=== PATIENT | female | born 1955 | race Caucasian/White ===

== ENCOUNTER 2020-10-30 19:37 | Inpatient (IN) | payer OTHER ==
[~2020-10-30] VITALS: Ht 167.6 cm; Wt 64.0 kg
--- NOTE | 2020-10-30 20:17 | PHYS DOC ---
Past Medical History Past Surgical History: No Surgical History Smoking Status: Never Smoker Alcohol Use: Heavy General Adult EDM: Chief Complaint: OTHER COMPLAINTS HPI: HPI: Patient is a 64 year old female presents with a chief complaint of weakness. Patient states she has been weak for 1 month progressively becoming worse. She states she has had decreased appetite. States she she has not been interested in eating or drinking. Patient states that she has had difficulty walking due to generalized weakness. States her has to help ambulate her and clean her up. Patient denies any associated headache chest pain shortness of breath fever chills nausea or vomiting. Review of Systems: Review of Systems: Review of systems: Constitutional symptoms- No fever, no chills. Eyes- No Discharge, No Visual Loss Respiratory symptoms- No shortness of breath, No wheezing, No Dyspnea on Exertion Cardiovascular Systems; No chest pain, No Palpitations, No syncope Gastrointestinal symptoms: NO abdominal pain, no nausea, no vomiting or diarrhea. Genitourinary symptoms: No dysuria. Musculoskeletal symptoms: No back pain No extremity pain. NEUROLOGICAL Symptoms: No headache, Positive generalized weakness; No focal Weakness Skin: No rash. Heart Score: C/O Chest Pain: N/A Risk Factors: Risk Factors: DM, Current or recent (<one month) smoker, HTN, HLP, family history of CAD, obesity. Risk Scores: Score 0 - 3: 2.5% MACE over next 6 weeks - Discharge Home Score 4 - 6: 20.3% MACE over next 6 weeks - Admit for Clinical Observation Score 7 - 10: 72.7% MACE over next 6 weeks - Early Invasive Strategies Allergies: Allergies: Allergies Coded Allergies Type Severity Reaction Last Updated Verified No Known Drug Allergies 10/30/20 No Physical Exam: PE: General: alert, no acute distress. Skin: warm, dry and intact. HENT: bilateral external ears normal, oropharynx moist, nose normal. Head:: Normocephalic, atraumatic. Neck: Trachea midline. Eyes: EOMI, Normal conjunctiva, No drainage CARDIOVASCULAR: Regular rate and rhythm RESPIRATORY: No respiratory distress Back: Full range of motion. Skin: Warm, dry, no erythema, no rash. MUSCULOSKELETAL: Full range of motion of bilateral upper and lower extremities. GASTROINTESTINAL: Abdomen soft without rebound or guarding. NEUROLOGICAL: Alert and noted to person, place and time. No neurological deficits observed Psychiatric: Cooperative. Normal judgment Current Patient Data: Vital Signs: Vital Signs Date Time Temp Pulse Resp B/P (MAP) Pulse Ox O2 Delivery O2 Flow Rate FiO2 10/30/20 19:40 99.1 104 16 133/72 99 Room Air 99.1 EKG: EKG: Performed at 1947 Rate [address] elevation No ST depression No acute NV [] Radiology/Procedures: Radiology/Procedures: [] Impression: FINDINGS: Pancreas: Not well seen Liver: Echogenic Gallbladder: Distended measuring up to about 94 mm. Definite adjacent fluid is not seen. Small amount of internal echoes which could be from sludge. Wall near the upper limits of normal at 3 mm. IVC: Partially distended at level of liver. Common Bile Duct: 5 mm Right Kidney: 19 mm cyst is suspected IMPRESSION: * Liver is echogenic which can be seen with fatty infiltration. * Gallbladder is distended with small amount of internal echoes which could be from sludge. Wall is near the upper limits of normal in size without definite adjacent fluid Electronically signed by: Dwayne Garza MD (10/31/2020 12:48 AM) [id number] Course & Med Decision Making: Course & Med Decision Making Pertinent Labs and Imaging studies reviewed. (See chart for details) [] Patient was evaluated for chief complaint. Work-up consisted of laboratory analysis and radiologic imaging. Results reviewed discussed with patient. Patient noted to have elevated T bili mild elevated AST and elevated alk phos. Sound was performed and shows gallbladder wall upper limits of normal and sludge. Patient was admitted to hospital for further evaluation and treatment. Shine Disclaimer: Shine Disclaimer: This electronic medical record was generated, in whole or in part, using a voice recognition dictation system. Departure Departure Impression: Primary Impression: Generalized weakness Additional Impression: Total bilirubin, elevated Disposition: ADMITTED INPATIENT Condition: STABLE PRERNA FRANCE I DO Oct 30, 2020 20:17
[2020-10-30] MEDS ORDERED: IV NORMAL SALINE 1000ML BAG 1,000 ML IV ONE ×2 (21:00→23:00)
[2020-10-30 21:39] LABS: BASO % 0 % (0-3); EOS % 0 % (0-3); HEMATOCRIT 25.8 % (36.0-47.0); HEMOGLOBIN 8.9 g/dL (12.0-15.5); LYMPH # 0.6 x10^3/uL (1.0-4.8); LYMPH % 5 % (24-48); MEAN CORPUSCULAR HEMOGLOBIN 43 pg (25-35); MEAN CORPUSCULAR HGB CONC 35 g/dL (31-37); MEAN CORPUSCULAR VOLUME 124 fL (79-100); MONO # 0.7 x10^3/uL (0.0-1.1); MONO % 7 % (0-9); NEUT # 9.8 x10^3/uL (1.8-7.7); NEUT % 88 % (31-73); PLATELET COUNT 107 x10^3/uL (140-400); RED BLOOD COUNT 2.08 x10^6/uL (3.50-5.40); RED CELL DISTRIBUTION WIDTH 15.5 % (11.5-14.5); WHITE BLOOD COUNT 11.2 x10^3/uL (4.0-11.0)
[2020-10-30 21:47] LABS: CALCIUM 7.6 mg/dL (8.5-10.1); CREATININE 0.5 mg/dL (0.6-1.0); GFR 124.2; POTASSIUM 3.6 mmol/L (3.5-5.1)
[2020-10-30 21:54] LABS: ALBUMIN 1.6 g/dL (3.4-5.0); ALBUMIN/GLOBULIN RATIO 0.3 (1.0-1.7); TOTAL BILIRUBIN 3.9 mg/dL (0.2-1.0); TOTAL PROTEIN 6.5 g/dL (6.4-8.2)
[2020-10-30 22:07] LABS: % BANDS 33 % (0-9); % LYMPHS 5 % (24-48); % MONOS 4 % (0-10); % SEGS 58 % (35-66)
[2020-10-30 22:10] LABS: PLT ESTIMATE DECREASED (ADEQUATE)
[2020-10-30] MEDS ORDERED: IOHEXOL 300 MG/ML 100ML VIAL. IV ONE (23:00)
[2020-10-30] MEDS ORDERED: CONTRAST GIVEN. MC PRN (23:00)
[2020-10-30 23:05] LABS: CLARITY,URINE CLOUDY
[2020-10-30 23:11] LABS: COLOR,URINE BROWN
[2020-10-30 23:14] LABS: BACTERIA,URINE FEW /HPF (0-FEW); RBC,URINE 0 /HPF (0-2)
--- NOTE | 2020-10-30 23:34 | RAD ---
INDICATION: Reason: abnormal labs elevated tbil ast alk phose / Spl. Instructions: [id number] / History: . COMPARISON: None. TECHNIQUE: Axial CT images obtained through the abdomen and pelvis with contrast. One or more of the following individualized dose reduction techniques were utilized for this examinat ion: 1. Automated exposure control; 2. Adjustment of the mA and/or kV according to patient size; 3 . Use of iterative reconstruction technique. FINDINGS: Small right-sided pleural effusion. Moderate hiatal hernia. Scattered calcific atherosclerosis. Liver is low density which can be seen with fatty infiltration. There is some heterogeneity. Gallbladder is somewhat distended with indistinctness of adjacent fat. No peripancreatic fluid collection. Spleen unremarkable. No hydronephrosis. Urinary bladder is partially distended. Free fluid in the pelvis. Uterus is visualized. Colonic diverticulosis. No periappendiceal inflammatory changes. Scoliotic curvature the spine with degenerative changes with multilevel central canal and neural fora julio cesar stenosis. Osseous demineralization. T12 mild compression deformity and Schmorl's node. Mild T11 compression deformity and T9 IMPRESSION: * Small right-sided pleural effusion. * Mild indistinctness of fat adjacent to the gallbladder. Nonspecific in nature but mild pericholecy stic edema is possible given this finding. Would correlate with symptoms and lab markers to ensure th ere is no gallbladder inflammation. This is a mild finding and could also be artifactual in nature fr om motion. * Liver is low density which can be seen with fatty infiltration. * Lower thoracic vertebral body mild compression deformities Electronically signed by: Dwayne Garza MD (10/30/2020 11:32 PM) [id number]
[2020-10-31] MEDS ORDERED: ONDANSETRON PF 4 MG/2 ML VIAL. IV PRN
--- NOTE | 2020-10-31 00:50 | RAD ---
INDICATION : Reason: ABD NORM LABS LFT TBIL ABNORMAL CT / Spl. Instructions: / History: COMPARISON: CT from earlier same day TECHNIQUE: Multiple ultrasound images obtained through the abdomen in grayscale and color. FINDINGS: Pancreas: Not well seen Liver: Echogenic Gallbladder: Distended measuring up to about 94 mm. Definite adjacent fluid is not seen. Small amount of internal echoes which could be from sludge. Wall near the upper limits of normal at 3 mm. IVC: Partially distended at level of liver. Common Bile Duct: 5 mm Right Kidney: 19 mm cyst is suspected IMPRESSION: * Liver is echogenic which can be seen with fatty infiltration. * Gallbladder is distended with small amount of internal echoes which could be from sludge. Wall is near the upper limits of normal in size without definite adjacent fluid Electronically signed by: Dwayne Garza MD (10/31/2020 12:48 AM) [id number]
[2020-10-31 02:30] VITALS: BP 123/63
[2020-10-31] MEDS ORDERED: ESCITALOPRAM OX20 MG PO (02:56)
[2020-10-31 07:30] VITALS: BP 113/60
[2020-10-31] MEDS ORDERED: ONDANSETRON PF 4 MG/2 ML VIAL. IVP PRN (08:15)
[2020-10-31] MEDS ORDERED: DOCUSATE SODIUM 100 MG CAPSULE. PO PRN (08:15)
[2020-10-31] MEDS ORDERED: SENNOSIDES 8.6 MG TABLET PO PRN (08:15)
[2020-10-31] MEDS ORDERED: DEXTROSE 50% 25 GM / 50ML DISP.SYRIN. IV PRN (08:15)
--- NOTE | 2020-10-31 08:19 | PDOC1 ---
History and Physical Date of Service: DOS: DATE: 10/31/20 TIME: 08:11 Chief Complaint: Chief Complain: Generalized weakness History of Present Illness: HPI: 64 year old female presents with a chief complaint of weakness. Patient states she has been weak for 1 month progressively becoming worse. She states she has had decreased appetite. States she she has not been interested in eating or drinking. Patient states that she has had difficulty walking due to generalized weakness. States her has to help ambulate her and clean her up. Patient denies any associated headache chest pain shortness of breath fever chills nausea or vomiting. Past Medical/Surgical History: PMH/PSH: Past Surgical History: No Surgical History Allergies: Allergies: Coded Allergies: No Known Drug Allergies (Unverified , 10/30/20) Family History: Family History: Reviewed with no relevant findings Social History: Social History: Smoking Status: Never Smoker Alcohol Use: Heavy Current Medications: Current Medications Current Medications Sodium Chloride 1,000 ml @ 1,000 mls/hr 1X ONCE IV Last administered on 10/30/20at 22:00; Start 10/30/20 at 21:00; Stop 10/30/20 at 21:59; Status DC Sodium Chloride 1,000 ml @ 1,000 mls/hr 1X ONCE IV Last administered on 10/31/20at 01:50; Start 10/30/20 at 23:00; Stop 10/30/20 at 23:59; Status DC Iohexol (Omnipaque 300 Mg/ml) 75 ml 1X ONCE IV Last administered on 10/30/20at 23:14; Start 10/30/20 at 23:00; Stop 10/30/20 at 23:01; Status DC Info (CONTRAST GIVEN -- Rx MONITORING) 1 each PRN DAILY PRN MC SEE COMMENTS; Start 10/30/20 at 23:00; Stop 11/01/20 at 22:59 Ondansetron HCl (Zofran) 4 mg PRN Q8HRS PRN IV NAUSEA/VOMITING; Start 10/31/20 at 00:00; Stop 10/31/20 at 23:59 Active Scripts Active Reported Escitalopram Oxalate 20 Mg Tablet 1 Tab PO DAILY ROS: Review of Systems Review of System REVIEW OF SYSTEMS: GENERAL: Denies weakness SKIN: No bruising, hair changes or rashes. EYES: No blurred, double or loss of vision. NOSE AND THROAT: No history of nosebleeds, hoarseness or sore throat. HEART: No history of palpitations, chest pain or shortness of breath on exertion. LUNGS: Denies cough, hemoptysis, wheezing or shortness of breath. GASTROINTESTINAL: Denies changes in appetite, nausea, vomiting, diarrhea or constipation. GENITOURINARY: No history of frequency, urgency, hesitancy or nocturia. NEUROLOGIC: Denies history of numbness, tingling, or tremor. PSYCHIATRIC: No history of panic, anxiety or depression. ENDOCRINE: No history of heat or cold intolerance, polyuria or polydipsia. EXTREMITIES: Denies joint pain, pain on walking or stiffness. Physical Exam: Vital Signs: Vital Signs Date Time Temp Pulse Resp B/P (MAP) Pulse Ox O2 Delivery O2 Flow Rate FiO2 10/31/20 02:59 Room Air 10/31/20 02:30 98.5 101 18 123/63 (83) 97 98.5 Physcial Exam: GEN: No apparent distress. Alert and oriented HEENT: Normal cephalic, atraumatic, external auditory canals are patent EYES: Extraocular muscles are intact, pupil are equally round and reactive to light and accommodation MUSCULOSKELETAL: Well developed , well nourished, good range of motion ENDOCRINE: No thyromegaly was palpated LYMPHATICS: No cervical chain or axillary nodes were noted HEMATOPOIETIC: No bruising NECK: Supple, no JVD, no thyromegaly was noted LUNGS: Clear to auscultation in all lung gu without rhonchi or wheezing HEART: RRR, S!, S2 present. Peripheral pulses intact, no obvious murmurs noted ABDOMEN: Soft, nontender. Positive bowel sounds, no organomegaly, normal bowel sounds EXTREMITIES: Without clubbing, cyanosis, or edema. Pedal pulses intact. Negative Homans sign NEUROLOGIC: Normal speech and tone. A&O x 3, moves all extremities, no obvious focal deficits PSYCHIATRIC: Normal affect, normal mood. Stable SKIN: No ulcerations or rashes, good skin turgor, no jaundice VASCULAR: Good capillary refill, neurovascular bundle appears to be intact Labs: Labs: Laboratory Tests Test 10/30/20 21:30 10/30/20 22:55 White Blood Count 11.2 x10^3/uL (4.0-11.0) Red Blood Count 2.08 x10^6/uL (3.50-5.40) Hemoglobin 8.9 g/dL (12.0-15.5) Hematocrit 25.8 % (36.0-47.0) Mean Corpuscular Volume 124 fL (79-100) Mean Corpuscular Hemoglobin 43 pg (25-35) Mean Corpuscular Hemoglobin Concent 35 g/dL (31-37) Red Cell Distribution Width 15.5 % (11.5-14.5) Platelet Count 107 x10^3/uL (140-400) Neutrophils (%) (Auto) 88 % (31-73) Lymphocytes (%) (Auto) 5 % (24-48) Monocytes (%) (Auto) 7 % (0-9) Eosinophils (%) (Auto) 0 % (0-3) Basophils (%) (Auto) 0 % (0-3) Neutrophils # (Auto) 9.8 x10^3/uL (1.8-7.7) Lymphocytes # (Auto) 0.6 x10^3/uL (1.0-4.8) Monocytes # (Auto) 0.7 x10^3/uL (0.0-1.1) Eosinophils # (Auto) 0.0 x10^3/uL (0.0-0.7) Basophils # (Auto) 0.0 x10^3/uL (0.0-0.2) Segmented Neutrophils % 58 % (35-66) Band Neutrophils % 33 % (0-9) Lymphocytes % 5 % (24-48) Monocytes % 4 % (0-10) Platelet Estimate Decreased (ADEQUATE) Macrocytosis Marked Sodium Level 132 mmol/L (136-145) Potassium Level 3.6 mmol/L (3.5-5.1) Chloride Level 96 mmol/L (98-107) Carbon Dioxide Level 25 mmol/L (21-32) Anion Gap 11 (6-14) Blood Urea Nitrogen 10 mg/dL (7-20) Creatinine 0.5 mg/dL (0.6-1.0) Estimated GFR (Cockcroft-Gault) 124.2 BUN/Creatinine Ratio 20 (6-20) Glucose Level 86 mg/dL (70-99) Calcium Level 7.6 mg/dL (8.5-10.1) Total Bilirubin 3.9 mg/dL (0.2-1.0) Aspartate Amino Transf (AST/SGOT) 99 U/L (15-37) Alanine Aminotransferase (ALT/SGPT) 51 U/L (14-59) Alkaline Phosphatase 289 U/L (46-116) Troponin I Quantitative < 0.017 ng/mL (0.000-0.055) Total Protein 6.5 g/dL (6.4-8.2) Albumin 1.6 g/dL (3.4-5.0) Albumin/Globulin Ratio 0.3 (1.0-1.7) Urine Collection Type Unknown Urine Color Brown Urine Clarity Cloudy Urine pH (<5.0-8.0) Urine Specific [place] 1.025 (1.000-1.030) Urine Protein mg/dL (NEG-TRACE) Urine Glucose (UA) mg/dL (NEG) Urine Ketones (Stick) mg/dL (NEG) Urine Blood (NEG) Urine Nitrite (NEG) Urine Bilirubin (NEG) Urine Urobilinogen Dipstick mg/dL (0.2 mg/dL) Urine Leukocyte Esterase (NEG) Urine RBC 0 /HPF (0-2) Urine WBC 5-10 /HPF (0-4) Urine Squamous Epithelial Cells Many /LPF Urine Bacteria Few /HPF (0-FEW) Urine Mucus Slight /LPF Laboratory Tests Test 10/30/20 21:30 10/30/20 22:55 White Blood Count 11.2 x10^3/uL (4.0-11.0) Red Blood Count 2.08 x10^6/uL (3.50-5.40) Hemoglobin 8.9 g/dL (12.0-15.5) Hematocrit 25.8 % (36.0-47.0) Mean Corpuscular Volume 124 fL (79-100) Mean Corpuscular Hemoglobin 43 pg (25-35) Mean Corpuscular Hemoglobin Concent 35 g/dL (31-37) Red Cell Distribution Width 15.5 % (11.5-14.5) Platelet Count 107 x10^3/uL (140-400) Neutrophils (%) (Auto) 88 % (31-73) Lymphocytes (%) (Auto) 5 % (24-48) Monocytes (%) (Auto) 7 % (0-9) Eosinophils (%) (Auto) 0 % (0-3) Basophils (%) (Auto) 0 % (0-3) Neutrophils # (Auto) 9.8 x10^3/uL (1.8-7.7) Lymphocytes # (Auto) 0.6 x10^3/uL (1.0-4.8) Monocytes # (Auto) 0.7 x10^3/uL (0.0-1.1) Eosinophils # (Auto) 0.0 x10^3/uL (0.0-0.7) Basophils # (Auto) 0.0 x10^3/uL (0.0-0.2) Segmented Neutrophils % 58 % (35-66) Band Neutrophils % 33 % (0-9) Lymphocytes % 5 % (24-48) Monocytes % 4 % (0-10) Platelet Estimate Decreased (ADEQUATE) Macrocytosis Marked Sodium Level 132 mmol/L (136-145) Potassium Level 3.6 mmol/L (3.5-5.1) Chloride Level 96 mmol/L (98-107) Carbon Dioxide Level 25 mmol/L (21-32) Anion Gap 11 (6-14) Blood Urea Nitrogen 10 mg/dL (7-20) Creatinine 0.5 mg/dL (0.6-1.0) Estimated GFR (Cockcroft-Gault) 124.2 BUN/Creatinine Ratio 20 (6-20) Glucose Level 86 mg/dL (70-99) Calcium Level 7.6 mg/dL (8.5-10.1) Total Bilirubin 3.9 mg/dL (0.2-1.0) Aspartate Amino Transf (AST/SGOT) 99 U/L (15-37) Alanine Aminotransferase (ALT/SGPT) 51 U/L (14-59) Alkaline Phosphatase 289 U/L (46-116) Troponin I Quantitative < 0.017 ng/mL (0.000-0.055) Total Protein 6.5 g/dL (6.4-8.2) Albumin 1.6 g/dL (3.4-5.0) Albumin/Globulin Ratio 0.3 (1.0-1.7) Urine Collection Type Unknown Urine Color Brown Urine Clarity Cloudy Urine pH (<5.0-8.0) Urine Specific [place] 1.025 (1.000-1.030) Urine Protein mg/dL (NEG-TRACE) Urine Glucose (UA) mg/dL (NEG) Urine Ketones (Stick) mg/dL (NEG) Urine Blood (NEG) Urine Nitrite (NEG) Urine Bilirubin (NEG) Urine Urobilinogen Dipstick mg/dL (0.2 mg/dL) Urine Leukocyte Esterase (NEG) Urine RBC 0 /HPF (0-2) Urine WBC 5-10 /HPF (0-4) Urine Squamous Epithelial Cells Many /LPF Urine Bacteria Few /HPF (0-FEW) Urine Mucus Slight /LPF Images: Images PROCEDURE: ABDOMEN LTD INDICATION : Reason: ABD NORM LABS LFT TBIL ABNORMAL CT / Spl. Instructions: / History: IMPRESSION: * Liver is echogenic which can be seen with fatty infiltration. * Gallbladder is distended with small amount of internal echoes which could be from sludge. Wall is near the upper limits of normal in size without definite adjacent fluid PROCEDURE: CT ABD PELV W/ IV CONTRST ONLY IMPRESSION: * Small right-sided pleural effusion. * Mild indistinctness of fat adjacent to the gallbladder. Nonspecific in nature but mild pericholecystic edema is possible given this finding. Would correlate with symptoms and lab markers to ensure there is no gallbladder inflammation. This is a mild finding and could also be artifactual in nature from motion. * Liver is low density which can be seen with fatty infiltration. * Lower thoracic vertebral body mild compression deformities Assessment/Plan Assessment/Plan Generalized weakness Macrocytic anemia Thrombocytopenia Acute electrolyte derangementhyponatremia, hypochloremia suggestive of volume depletion Hyperbilirubinemia Elevated liver enzymes - increased AST/ALT ratio suggestive of chronic EtOH abuse Severe protein malnutrition Acute cholecystitis Admit to medicine for further management GI consult Surgery consult pending iron panel ,B12 levels, ferritin and direct biliruin SCD only for DVT prophylaxis Protonix for GI prophylaxis DPOA: FULL code dispo: surgery and GI to evaluate Justifications for Admission Other Justification SAL HERNANDEZ MD Oct 31, 2020 08:19
[2020-10-31] MEDS: IV NORMAL SALINE 1000ML BAG 1,000 ML IV SCH ×2 (08:38→21:04)
[2020-10-31] MEDS: ENOXAPARIN 40 MG/0.4 ML SYRINGE. SQ SCH ×2 (08:38→09:00)
[2020-10-31 09:45] LABS: PROTHROMBIN TIME PATIENT 14.6 SEC (11.7-14.0)
--- NOTE | 2020-10-31 11:26 | PDOC2 ---
GI CONSULT Date of Service: DATE: 10/31/20 TIME: 11:20 Reason For Consult: elevated total bili HPI: HPI: 64 y/o female admitted through ER. Ill for weeks - months. present for first part of interview because pt asked him to leave. Before he stepped out, he said pt's siblings came to the house "for an intervention" and said it was time to get some help. I asked what the intervention was for - they said becau se she hasn't eaten anything except Ensure in weeks and is very weak. "I just don't feel like it." Additionally, before he left, he said "I just thought I could help you tell her the truth." H/o reflux - takes Maalox PRN. No dysphagia. No n/v. No abd pain. No early satiety. No diarrhea, constipation, hematochezia, or melena. Estimates 50 pound weight loss. Reports blood in urine. No previous EGD. Reports normal colonoscopy (says done here) ~10 years ago. Denies GB, pancreas, or PUD history. Says she was told to stop drinking alcohol by her PCP (?because of abnormal liver labs?) about a year ago and she didn't. Says she drinks "too much." Has never tried AA, etc. Indicates she is not interested in quitting drinking altogether. Says she has been drinking less over the past year ("half a glass of wine at night.. I'm not rip-roarin' drunk or anything"). Started taking anti-depressant ~6 months ago. Takes no other medications. Labs note Hgb 8.9, MCV 124, plt 101, INR 1.1, bili 3.9, AST 99, ALT 51, Alk Phos 289. CT notes fatty liver, mild mild indistinctness of fat adjacent to GB, and moderate hiatal hernia. US notes distended GB w/ possible sludge, CBD 5mm (normal), and fatty liver. PMH: PMH: depression FH: Family History: No pertinent hx (denies liver disease) Social History: Smoke: Quit ALCOHOL: heavy Drugs: None ROS: GEN: +depressed HEENT: Denies blurred vision, sore throat CV: Denies chest pain RESP: Denies shortness of air, cough GI: Per HPI : +hematuria ENDO: +weight loss NEURO: Denies confusion, dizziness MSK: +weakness SKIN: Denies jaundice, pruritus Vitals: Vitals: Vital Signs Date Time Temp Pulse Resp B/P (MAP) Pulse Ox O2 Delivery O2 Flow Rate FiO2 10/31/20 08:00 Room Air 10/31/20 07:30 98.4 107 16 113/60 (77) 95 98.4 Labs: Labs: Laboratory Tests Test 10/30/20 21:30 10/30/20 22:55 10/31/20 08:30 White Blood Count 11.2 x10^3/uL (4.0-11.0) Red Blood Count 2.08 x10^6/uL (3.50-5.40) Hemoglobin 8.9 g/dL (12.0-15.5) Hematocrit 25.8 % (36.0-47.0) Mean Corpuscular Volume 124 fL (79-100) Mean Corpuscular Hemoglobin 43 pg (25-35) Mean Corpuscular Hemoglobin Concent 35 g/dL (31-37) Red Cell Distribution Width 15.5 % (11.5-14.5) Platelet Count 107 x10^3/uL (140-400) Neutrophils (%) (Auto) 88 % (31-73) Lymphocytes (%) (Auto) 5 % (24-48) Monocytes (%) (Auto) 7 % (0-9) Eosinophils (%) (Auto) 0 % (0-3) Basophils (%) (Auto) 0 % (0-3) Neutrophils # (Auto) 9.8 x10^3/uL (1.8-7.7) Lymphocytes # (Auto) 0.6 x10^3/uL (1.0-4.8) Monocytes # (Auto) 0.7 x10^3/uL (0.0-1.1) Eosinophils # (Auto) 0.0 x10^3/uL (0.0-0.7) Basophils # (Auto) 0.0 x10^3/uL (0.0-0.2) Segmented Neutrophils % 58 % (35-66) Band Neutrophils % 33 % (0-9) Lymphocytes % 5 % (24-48) Monocytes % 4 % (0-10) Platelet Estimate Decreased (ADEQUATE) Macrocytosis Marked Sodium Level 132 mmol/L (136-145) Potassium Level 3.6 mmol/L (3.5-5.1) Chloride Level 96 mmol/L (98-107) Carbon Dioxide Level 25 mmol/L (21-32) Anion Gap 11 (6-14) Blood Urea Nitrogen 10 mg/dL (7-20) Creatinine 0.5 mg/dL (0.6-1.0) Estimated GFR (Cockcroft-Gault) 124.2 BUN/Creatinine Ratio 20 (6-20) Glucose Level 86 mg/dL (70-99) Calcium Level 7.6 mg/dL (8.5-10.1) Total Bilirubin 3.9 mg/dL (0.2-1.0) Aspartate Amino Transf (AST/SGOT) 99 U/L (15-37) Alanine Aminotransferase (ALT/SGPT) 51 U/L (14-59) Alkaline Phosphatase 289 U/L (46-116) Troponin I Quantitative < 0.017 ng/mL (0.000-0.055) Total Protein 6.5 g/dL (6.4-8.2) Albumin 1.6 g/dL (3.4-5.0) Albumin/Globulin Ratio 0.3 (1.0-1.7) Urine Collection Type Unknown Urine Color Brown Urine Clarity Cloudy Urine pH (<5.0-8.0) Urine Specific [place] 1.025 (1.000-1.030) Urine Protein mg/dL (NEG-TRACE) Urine Glucose (UA) mg/dL (NEG) Urine Ketones (Stick) mg/dL (NEG) Urine Blood (NEG) Urine Nitrite (NEG) Urine Bilirubin (NEG) Urine Urobilinogen Dipstick mg/dL (0.2 mg/dL) Urine Leukocyte Esterase (NEG) Urine RBC 0 /HPF (0-2) Urine WBC 5-10 /HPF (0-4) Urine Squamous Epithelial Cells Many /LPF Urine Bacteria Few /HPF (0-FEW) Urine Mucus Slight /LPF Prothrombin Time 14.6 SEC (11.7-14.0) Prothromb Time International Ratio 1.1 (0.8-1.1) Ferritin 2446 ng/mL (8-252) Thyroid Stimulating Hormone (TSH) 1.058 uIU/mL (0.358-3.74) Allergies: Coded Allergies: No Known Drug Allergies (Unverified , 10/30/20) Medications: Current Medications Medications (Trade) Dose Ordered Sig/Gal Route PRN Reason Start Time Stop Time Status Last Admin Dose Admin Sodium Chloride 1,000 ml @ 1,000 mls/hr 1X ONCE IV 10/30/20 21:00 10/30/20 21:59 DC 10/30/20 22:00 Sodium Chloride 1,000 ml @ 1,000 mls/hr 1X ONCE IV 10/30/20 23:00 10/30/20 23:59 DC 10/31/20 01:50 Iohexol (Omnipaque 300 Mg/ml) 75 ml 1X ONCE IV 10/30/20 23:00 10/30/20 23:01 DC 10/30/20 23:14 Sodium Chloride 1,000 ml @ 100 mls/hr Q10H IV 10/31/20 08:15 10/31/20 08:38 Imaging: Imaging: CT A/P IMPRESSION: * Small right-sided pleural effusion. * Mild indistinctness of fat adjacent to the gallbladder. Nonspecific in nature but mild pericholecystic edema is possible given this finding. Would correlate with symptoms and lab markers to ensure there is no gallbladder inflammation. This is a mild finding and could also be artifactual in nature from motion. * Liver is low density which can be seen with fatty infiltration. * Lower thoracic vertebral body mild compression deformities. RUQ US IMPRESSION: * Liver is echogenic which can be seen with fatty infiltration. * Gallbladder is distended with small amount of internal echoes which could be from sludge. Wall is near the upper limits of normal in size without definite adjacent fluid. PE: GEN: NAD HEENT: Atraumatic, PERRL LUNGS: CTAB HEART: mildly tachycardic ABD: NABS, S/ND/NT EXTREMITY: No edema SKIN: +jaundice +bruising NEURO/PSYCH: A & O 3, flat/depressed A/P: A/P: Anorexia, weight loss, weakness, depression Macrocytic anemia, thrombocytopenia, abnormal LFTs, h/o alcohol overuse Distended GB, ?sludge, fatty liver, normal CBD GERD, moderate hiatal hernia CRC screen - reportedly normal colonoscopy ~10 years ago -- She provided adequate history but was also not overly forthcoming. Dr. Hilton saw pt earlier this morning - concern for GB issue - will ask for surgery opinion and start atbx. D/w Dr. Lovell. Will also give acid-hand laminator for h/o GERD and hiatal hernia on imaging. Check B12 for completeness (already ordered); however, suspect macrocytosis and abnormal LFTs at least in part related to alcohol. Seems has been advised to stop drinking in the past. Follow labs. LEN RECINOS Oct 31, 2020 11:26
[2020-10-31 11:30] VITALS: BP 111/66
[2020-10-31] MEDS ORDERED: CYANOCOBALAMIN (VITAMIN B-12) 1,000 MCG/ML VIAL. IM ONE (12:15)
[2020-10-31] MEDS ORDERED: CALCIUM CARBONATE 500 MG TAB.CHEW PO PRN (12:15)
[2020-10-31] MEDS: PIPERACILLIN/TAZOBACTAM 3.375 GM in IV NORMAL SALINE 50ML 50 ML IV SCH ×2 (13:17→17:29)
[2020-10-31] MEDS: THIAMINE 100 MG TABLET. PO SCH (13:19)
[2020-10-31] MEDS: FOLIC ACID 1 MG TABLET. PO SCH (13:19)
[2020-10-31 15:38] VITALS: BP 108/61
[2020-10-31] MEDS: PANTOPRAZOLE 40 MG TABLET.DR. PO SCH (17:29)
--- NOTE | 2020-10-31 17:52 | PDOC2 ---
CONSULT Date of Consult Date of Consult DATE: 10/31/20 TIME: 17:46 Reason for Consult Reason for Consult: Abd pain Referring Physician Referring Physician: Brittany Identification/Chief Complaint Chief Complaint Abd pain and no appetite Source Source: Chart review, Patient History of Present Illness Reason for Visit: 64 yo female with 2 days of abdominal pain mostly right upper abdomen and no appetitie. Patient states she drinks 2 glasses of wine per day. U/S shows distended gallbladder and stones with thickened GB wall. Past Medical History Cardiovascular: No pertinent hx Pulmonary: No pertinent hx GI: No pertinent hx Heme/Onc: No pertinent hx Hepatobiliary: No pertinent hx Psych: Addictions Infectious disease: No pertinent hx ENT: No pertinent hx Renal/: No pertinent hx Endocrine: No pertinent hx Dermatology: No pertinent hx Past Surgical History Past Surgical History: No pertinent history Family History Family History: No Significant Social History Quit ALCOHOL: heavy Drugs: None Current Medications Current Medications Current Medications Sodium Chloride 1,000 ml @ 1,000 mls/hr 1X ONCE IV Last administered on 10/30at 22:00; Start 10/30/20 at 21:00; Stop 10/30/20 at 21:59; Status DC Sodium Chloride 1,000 ml @ 1,000 mls/hr 1X ONCE IV Last administered on 10/31/20at 01:50; Start 10/30/20 at 23:00; Stop 10/30/20 at 23:59; Status DC Iohexol (Omnipaque 300 Mg/ml) 75 ml 1X ONCE IV Last administered on 10/30/20at 23:14; Start 10/30/20 at 23:00; Stop 10/30/20 at 23:01; Status DC Info (CONTRAST GIVEN -- Rx MONITORING) 1 each PRN DAILY PRN MC SEE COMMENTS; Start 10/30/20 at 23:00; Stop 11/01/20 at 22:59 Ondansetron HCl (Zofran) 4 mg PRN Q8HRS PRN IV NAUSEA/VOMITING; Start 10/31/20 at 00:00; Stop 10/31/20 at 23:59 Sennosides (Senna) 17.2 mg PRN BID PRN PO CONSTIPATION; Start 10/31/20 at 08:15 Docusate Sodium (Colace) 100 mg PRN DAILY PRN PO HARD STOOLS; Start 10/31/20 at 08:15 Ondansetron HCl (Zofran) 4 mg PRN Q6HRS PRN IVP NAUSEA/VOMITING; Start 10/31/20 at 08:15 Dextrose (Dextrose 50%-Water Syringe) 12.5 gm PRN Q15MIN PRN IV SEE COMMENTS; Start 10/31/20 at 08:15 Sodium Chloride 1,000 ml @ 100 mls/hr Q10H IV Last administered on 10/31/20at 08:38; Start 10/31/20 at 08:15 Acetaminophen (Tylenol) 650 mg PRN Q4HRS PRN PO TEMP OVER 100.4F OR MILD PAIN; Start 10/31/20 at 08:15 Enoxaparin Sodium (Lovenox 40mg Syringe) 40 mg Q24H SQ ; Start 10/31/20 at 09:00 Cyanocobalamin (Vitamin B-12 Inj) 1,000 mcg 1X ONCE IM Last administered on 10/31/20at 13:19; Start 10/31/20 at 12:15; Stop 10/31/20 at 12:16; Status DC Thiamine Mononitrate (Vitamin B-1) 300 mg DAILY PO Last administered on 10/31/20at 13:19; Start 10/31/20 at 13:00 Folic Acid (Folic Acid) 1 mg DAILY PO Last administered on 10/31/20at 13:19; Start 10/31/20 at 13:00 Pantoprazole Sodium (Protonix) 40 mg DAILYAC PO Last administered on 10/31/20at 17:29; Start 10/31/20 at 16:30 Calcium Carbonate/ Glycine (Tums) 500 mg PRN AFTMEALHC PRN PO INDIGESTION; Start 10/31/20 at 12:15 Piperacillin Sod/ Tazobactam Sod 3.375 gm/Sodium Chloride 50 ml @ 100 mls/hr Q6HRS IV Last administered on 10/31/20at 17:29; Start 10/31/20 at 13:00 Active Scripts Active Reported Escitalopram Oxalate 20 Mg Tablet 1 Tab PO DAILY Allergies Allergies: Coded Allergies: No Known Drug Allergies (Unverified , 10/30/20) ROS Gastrointestinal: Yes Abdominal Pain Physical Exam General: Alert, Oriented X3, Cooperative, mild distress, Other (thin) HEENT: Atraumatic, EOMI Lungs: Clear to auscultation, Normal air movement Heart: Regular rate, No murmurs Abdomen: Normal bowel sounds, Soft, Other (TTP RUQ) Extremities: No edema Skin: No significant lesion Neuro: Normal speech Psych/Mental Status: Mental status NL Vitals VITALS Vital Signs Date Time Temp Pulse Resp B/P (MAP) Pulse Ox O2 Delivery O2 Flow Rate FiO2 10/31/20 15:38 98.1 107 16 108/61 (77) 96 Room Air 98.1 Labs Labs Laboratory Tests Test 10/30/20 21:30 10/30/20 22:55 10/31/20 08:30 White Blood Count 11.2 x10^3/uL (4.0-11.0) Red Blood Count 2.08 x10^6/uL (3.50-5.40) Hemoglobin 8.9 g/dL (12.0-15.5) Hematocrit 25.8 % (36.0-47.0) Mean Corpuscular Volume 124 fL (79-100) Mean Corpuscular Hemoglobin 43 pg (25-35) Mean Corpuscular Hemoglobin Concent 35 g/dL (31-37) Red Cell Distribution Width 15.5 % (11.5-14.5) Platelet Count 107 x10^3/uL (140-400) Neutrophils (%) (Auto) 88 % (31-73) Lymphocytes (%) (Auto) 5 % (24-48) Monocytes (%) (Auto) 7 % (0-9) Eosinophils (%) (Auto) 0 % (0-3) Basophils (%) (Auto) 0 % (0-3) Neutrophils # (Auto) 9.8 x10^3/uL (1.8-7.7) Lymphocytes # (Auto) 0.6 x10^3/uL (1.0-4.8) Monocytes # (Auto) 0.7 x10^3/uL (0.0-1.1) Eosinophils # (Auto) 0.0 x10^3/uL (0.0-0.7) Basophils # (Auto) 0.0 x10^3/uL (0.0-0.2) Segmented Neutrophils % 58 % (35-66) Band Neutrophils % 33 % (0-9) Lymphocytes % 5 % (24-48) Monocytes % 4 % (0-10) Platelet Estimate Decreased (ADEQUATE) Macrocytosis Marked Sodium Level 132 mmol/L (136-145) Potassium Level 3.6 mmol/L (3.5-5.1) Chloride Level 96 mmol/L (98-107) Carbon Dioxide Level 25 mmol/L (21-32) Anion Gap 11 (6-14) Blood Urea Nitrogen 10 mg/dL (7-20) Creatinine 0.5 mg/dL (0.6-1.0) Estimated GFR (Cockcroft-Gault) 124.2 BUN/Creatinine Ratio 20 (6-20) Glucose Level 86 mg/dL (70-99) Calcium Level 7.6 mg/dL (8.5-10.1) Total Bilirubin 3.9 mg/dL (0.2-1.0) Aspartate Amino Transf (AST/SGOT) 99 U/L (15-37) Alanine Aminotransferase (ALT/SGPT) 51 U/L (14-59) Alkaline Phosphatase 289 U/L (46-116) Troponin I Quantitative < 0.017 ng/mL (0.000-0.055) Total Protein 6.5 g/dL (6.4-8.2) Albumin 1.6 g/dL (3.4-5.0) Albumin/Globulin Ratio 0.3 (1.0-1.7) Urine Collection Type Unknown Urine Color Brown Urine Clarity Cloudy Urine pH (<5.0-8.0) Urine Specific [place] 1.025 (1.000-1.030) Urine Protein mg/dL (NEG-TRACE) Urine Glucose (UA) mg/dL (NEG) Urine Ketones (Stick) mg/dL (NEG) Urine Blood (NEG) Urine Nitrite (NEG) Urine Bilirubin (NEG) Urine Urobilinogen Dipstick mg/dL (0.2 mg/dL) Urine Leukocyte Esterase (NEG) Urine RBC 0 /HPF (0-2) Urine WBC 5-10 /HPF (0-4) Urine Squamous Epithelial Cells Many /LPF Urine Bacteria Few /HPF (0-FEW) Urine Mucus Slight /LPF Prothrombin Time 14.6 SEC (11.7-14.0) Prothromb Time International Ratio 1.1 (0.8-1.1) Iron Level 40 ug/dL (50-170) Total Iron Binding Capacity 79 ug/dL (250-450) Iron Saturation 51 % (15-34) Ferritin 2446 ng/mL (8-252) Vitamin B12 Level 1115 pg/mL (247-911) 25-Hydroxy Vitamin D Total 31.3 ng/mL (30-100) Thyroid Stimulating Hormone (TSH) 1.058 uIU/mL (0.358-3.74) Hepatitis A IgM Antibody Nonreactive (Nonreactive) Hepatitis B Surface Antigen Nonreactive (Nonreactive) Hepatitis B Core IgM Antibody Nonreactive (Nonreactive) Hepatitis C IgG Antibody Nonreactive (Nonreactive) Laboratory Tests Test 10/30/20 21:30 10/30/20 22:55 10/31/20 08:30 White Blood Count 11.2 x10^3/uL (4.0-11.0) Red Blood Count 2.08 x10^6/uL (3.50-5.40) Hemoglobin 8.9 g/dL (12.0-15.5) Hematocrit 25.8 % (36.0-47.0) Mean Corpuscular Volume 124 fL (79-100) Mean Corpuscular Hemoglobin 43 pg (25-35) Mean Corpuscular Hemoglobin Concent 35 g/dL (31-37) Red Cell Distribution Width 15.5 % (11.5-14.5) Platelet Count 107 x10^3/uL (140-400) Neutrophils (%) (Auto) 88 % (31-73) Lymphocytes (%) (Auto) 5 % (24-48) Monocytes (%) (Auto) 7 % (0-9) Eosinophils (%) (Auto) 0 % (0-3) Basophils (%) (Auto) 0 % (0-3) Neutrophils # (Auto) 9.8 x10^3/uL (1.8-7.7) Lymphocytes # (Auto) 0.6 x10^3/uL (1.0-4.8) Monocytes # (Auto) 0.7 x10^3/uL (0.0-1.1) Eosinophils # (Auto) 0.0 x10^3/uL (0.0-0.7) Basophils # (Auto) 0.0 x10^3/uL (0.0-0.2) Segmented Neutrophils % 58 % (35-66) Band Neutrophils % 33 % (0-9) Lymphocytes % 5 % (24-48) Monocytes % 4 % (0-10) Platelet Estimate Decreased (ADEQUATE) Macrocytosis Marked Sodium Level 132 mmol/L (136-145) Potassium Level 3.6 mmol/L (3.5-5.1) Chloride Level 96 mmol/L (98-107) Carbon Dioxide Level 25 mmol/L (21-32) Anion Gap 11 (6-14) Blood Urea Nitrogen 10 mg/dL (7-20) Creatinine 0.5 mg/dL (0.6-1.0) Estimated GFR (Cockcroft-Gault) 124.2 BUN/Creatinine Ratio 20 (6-20) Glucose Level 86 mg/dL (70-99) Calcium Level 7.6 mg/dL (8.5-10.1) Total Bilirubin 3.9 mg/dL (0.2-1.0) Aspartate Amino Transf (AST/SGOT) 99 U/L (15-37) Alanine Aminotransferase (ALT/SGPT) 51 U/L (14-59) Alkaline Phosphatase 289 U/L (46-116) Troponin I Quantitative < 0.017 ng/mL (0.000-0.055) Total Protein 6.5 g/dL (6.4-8.2) Albumin 1.6 g/dL (3.4-5.0) Albumin/Globulin Ratio 0.3 (1.0-1.7) Urine Collection Type Unknown Urine Color Brown Urine Clarity Cloudy Urine pH (<5.0-8.0) Urine Specific [place] 1.025 (1.000-1.030) Urine Protein mg/dL (NEG-TRACE) Urine Glucose (UA) mg/dL (NEG) Urine Ketones (Stick) mg/dL (NEG) Urine Blood (NEG) Urine Nitrite (NEG) Urine Bilirubin (NEG) Urine Urobilinogen Dipstick mg/dL (0.2 mg/dL) Urine Leukocyte Esterase (NEG) Urine RBC 0 /HPF (0-2) Urine WBC 5-10 /HPF (0-4) Urine Squamous Epithelial Cells Many /LPF Urine Bacteria Few /HPF (0-FEW) Urine Mucus Slight /LPF Prothrombin Time 14.6 SEC (11.7-14.0) Prothromb Time International Ratio 1.1 (0.8-1.1) Iron Level 40 ug/dL (50-170) Total Iron Binding Capacity 79 ug/dL (250-450) Iron Saturation 51 % (15-34) Ferritin 2446 ng/mL (8-252) Vitamin B12 Level 1115 pg/mL (247-911) 25-Hydroxy Vitamin D Total 31.3 ng/mL (30-100) Thyroid Stimulating Hormone (TSH) 1.058 uIU/mL (0.358-3.74) Hepatitis A IgM Antibody Nonreactive (Nonreactive) Hepatitis B Surface Antigen Nonreactive (Nonreactive) Hepatitis B Core IgM Antibody Nonreactive (Nonreactive) Hepatitis C IgG Antibody Nonreactive (Nonreactive) Assessment/Plan Assessment/Plan Cholecystits with alcoholic liver disease, mild Plan cholecystectomy tomorrow HECTOR COTTO MD Oct 31, 2020 17:52
[2020-10-31 19:00] VITALS: BP 116/67
[2020-10-31 23:42] VITALS: BP 103/58
[2020-11-01] MEDS: PIPERACILLIN/TAZOBACTAM 3.375 GM in IV NORMAL SALINE 50ML 50 ML IV SCH ×4 (00:19→18:36)
[2020-11-01 03:22] VITALS: BP 114/69
[2020-11-01] MEDS: IV NORMAL SALINE 1000ML BAG 1,000 ML IV SCH ×2 (06:03→21:15)
[2020-11-01 07:00] VITALS: BP 118/58
[2020-11-01] MEDS: PANTOPRAZOLE 40 MG TABLET.DR. PO SCH (07:30)
[2020-11-01 08:34] LABS: BASO # 0.1 x10^3/uL (0.0-0.2); BASO % 1 % (0-3); EOS % 1 % (0-3); HEMOGLOBIN 7.1 g/dL (12.0-15.5); LYMPH # 0.6 x10^3/uL (1.0-4.8); LYMPH % 11 % (24-48); MEAN CORPUSCULAR HEMOGLOBIN 43 pg (25-35); MEAN CORPUSCULAR HGB CONC 34 g/dL (31-37); MEAN CORPUSCULAR VOLUME 126 fL (79-100); MONO # 0.7 x10^3/uL (0.0-1.1); MONO % 12 % (0-9); NEUT # 4.5 x10^3/uL (1.8-7.7); NEUT % 75 % (31-73); PLATELET COUNT 93 x10^3/uL (140-400); RED BLOOD COUNT 1.64 x10^6/uL (3.50-5.40); RED CELL DISTRIBUTION WIDTH 15.3 % (11.5-14.5); WHITE BLOOD COUNT 5.9 x10^3/uL (4.0-11.0)
[2020-11-01 08:49] LABS: HEMATOCRIT 20.7 % (36.0-47.0)
[2020-11-01 08:58] LABS: ALBUMIN 1.1 g/dL (3.4-5.0); DIRECT BILIRUBIN 2.8 mg/dL (0.0-0.2); TOTAL BILIRUBIN 3.4 mg/dL (0.2-1.0); TOTAL PROTEIN 5.2 g/dL (6.4-8.2)
[2020-11-01] MEDS: THIAMINE 100 MG TABLET. PO SCH (09:00)
[2020-11-01] MEDS: ENOXAPARIN 40 MG/0.4 ML SYRINGE. SQ SCH (09:00)
[2020-11-01] MEDS: FOLIC ACID 1 MG TABLET. PO SCH (09:00)
[2020-11-01 09:02] LABS: CALCIUM 7.1 mg/dL (8.5-10.1); CREATININE 0.6 mg/dL (0.6-1.0); GFR 100.6; MAGNESIUM 1.2 mg/dL (1.8-2.4); PHOSPHORUS 2.3 mg/dL (2.6-4.7)
[2020-11-01 09:12] LABS: POTASSIUM 2.7 mmol/L (3.5-5.1)
--- NOTE | 2020-11-01 09:43 | PDOC ---
Date of Service: DATE: 11/01/20 TIME: 09:39 Subjective: Subjective: Feels the same. Catching some Zs before surgery. Objective: Vital Signs: Vital Signs Date Time Temp Pulse Resp B/P (MAP) Pulse Ox O2 Delivery O2 Flow Rate FiO2 11/01/20 07:00 97.8 94 18 118/58 (78) 95 Room Air 97.8 Labs: Laboratory Tests Test 11/01/20 07:50 White Blood Count 5.9 x10^3/uL Red Blood Count 1.64 x10^6/uL Hemoglobin 7.1 g/dL Hematocrit 20.7 % Mean Corpuscular Volume 126 fL Mean Corpuscular Hemoglobin 43 pg Mean Corpuscular Hemoglobin Concent 34 g/dL Red Cell Distribution Width 15.3 % Platelet Count 93 x10^3/uL Neutrophils (%) (Auto) 75 % Lymphocytes (%) (Auto) 11 % Monocytes (%) (Auto) 12 % Eosinophils (%) (Auto) 1 % Basophils (%) (Auto) 1 % Neutrophils # (Auto) 4.5 x10^3/uL Lymphocytes # (Auto) 0.6 x10^3/uL Monocytes # (Auto) 0.7 x10^3/uL Eosinophils # (Auto) 0.0 x10^3/uL Basophils # (Auto) 0.1 x10^3/uL Sodium Level 137 mmol/L Potassium Level 2.7 mmol/L Chloride Level 104 mmol/L Carbon Dioxide Level 23 mmol/L Anion Gap 10 Blood Urea Nitrogen 8 mg/dL Creatinine 0.6 mg/dL Estimated GFR (Cockcroft-Gault) 100.6 Glucose Level 75 mg/dL Calcium Level 7.1 mg/dL Phosphorus Level 2.3 mg/dL Magnesium Level 1.2 mg/dL Total Bilirubin 3.4 mg/dL Direct Bilirubin 2.8 mg/dL Aspartate Amino Transf (AST/SGOT) 69 U/L Alanine Aminotransferase (ALT/SGPT) 41 U/L Alkaline Phosphatase 207 U/L Total Protein 5.2 g/dL Albumin 1.1 g/dL URINE CULTURE Final Final Three or more organisms isolated. Results consistent with colonization or contamination during the collection process. Recollection recommended using a method to minimize contamination. PE: GEN: NAD - was sleeping, present LUNGS: CTAB HEART: RRR ABD: S/ND/NT NEURO/PSYCH: A & O 3 A/P: Anorexia, weight loss Macrocytic anemia (not B12 deficient), thrombocytopenia, abnormal LFTs (better) - in setting of alcohol overuse w/ fatty liver on imaging Distended GB, ?sludge GERD, moderate hiatal hernia - on PPI here Hypokalemia Depression -- Plans for cholecystectomy today, will follow. Transfuse as needed. Justicifation of Admission Dx: Justifications for Admission: Justification of Admission Dx: Yes LEN RECINOS Nov 01, 2020 09:43
[2020-11-01] MEDS ORDERED: MAGNESIUM SULFATE 2GM 50 ML IV ONE (10:00)
[2020-11-01] MEDS ORDERED: POTASSIUM CHLORIDE 10MEQ 100 ML IV SCH (10:00)
[2020-11-01 11:00] VITALS: BP 126/60
--- NOTE | 2020-11-01 11:34 | PDOC ---
SURGICAL PROGRESS NOTE DATE: 11/01/20 TIME: 11:30 Subjective Patient is doing well still having abdominal pain. Vital Signs Vital Signs Date Time Temp Pulse Resp B/P (MAP) Pulse Ox O2 Delivery O2 Flow Rate FiO2 11/01/20 07:00 97.8 94 18 118/58 (78) 95 Room Air 97.8 I&O Intake and Output 11/01/20 07:00 Intake Total 2450 ml Output Total 0 ml Balance 2450 ml Intake Oral 520 ml IV Total 1930 ml Output Urine Total 0 ml # Voids 3 # Bowel Movements 1 PATIENT HAS A DAILY: No General: Alert, Oriented X3, Cooperative, mild distress Abdomen: Normal bowel sounds, Soft, Other (Tender to palpation right upper quadrant) Labs Laboratory Tests Test 10/30/20 21:30 10/30/20 22:55 10/31/20 08:30 11/01/20 07:50 White Blood Count 11.2 x10^3/uL (4.0-11.0) 5.9 x10^3/uL (4.0-11.0) Red Blood Count 2.08 x10^6/uL (3.50-5.40) 1.64 x10^6/uL (3.50-5.40) Hemoglobin 8.9 g/dL (12.0-15.5) 7.1 g/dL (12.0-15.5) Hematocrit 25.8 % (36.0-47.0) 20.7 % (36.0-47.0) Mean Corpuscular Volume 124 fL (79-100) 126 fL (79-100) Mean Corpuscular Hemoglobin 43 pg (25-35) 43 pg (25-35) Mean Corpuscular Hemoglobin Concent 35 g/dL (31-37) 34 g/dL (31-37) Red Cell Distribution Width 15.5 % (11.5-14.5) 15.3 % (11.5-14.5) Platelet Count 107 x10^3/uL (140-400) 93 x10^3/uL (140-400) Neutrophils (%) (Auto) 88 % (31-73) 75 % (31-73) Lymphocytes (%) (Auto) 5 % (24-48) 11 % (24-48) Monocytes (%) (Auto) 7 % (0-9) 12 % (0-9) Eosinophils (%) (Auto) 0 % (0-3) 1 % (0-3) Basophils (%) (Auto) 0 % (0-3) 1 % (0-3) Neutrophils # (Auto) 9.8 x10^3/uL (1.8-7.7) 4.5 x10^3/uL (1.8-7.7) Lymphocytes # (Auto) 0.6 x10^3/uL (1.0-4.8) 0.6 x10^3/uL (1.0-4.8) Monocytes # (Auto) 0.7 x10^3/uL (0.0-1.1) 0.7 x10^3/uL (0.0-1.1) Eosinophils # (Auto) 0.0 x10^3/uL (0.0-0.7) 0.0 x10^3/uL (0.0-0.7) Basophils # (Auto) 0.0 x10^3/uL (0.0-0.2) 0.1 x10^3/uL (0.0-0.2) Segmented Neutrophils % 58 % (35-66) Band Neutrophils % 33 % (0-9) Lymphocytes % 5 % (24-48) Monocytes % 4 % (0-10) Platelet Estimate Decreased (ADEQUATE) Macrocytosis Marked Sodium Level 132 mmol/L (136-145) 137 mmol/L (136-145) Potassium Level 3.6 mmol/L (3.5-5.1) 2.7 mmol/L (3.5-5.1) Chloride Level 96 mmol/L (98-107) 104 mmol/L (98-107) Carbon Dioxide Level 25 mmol/L (21-32) 23 mmol/L (21-32) Anion Gap 11 (6-14) 10 (6-14) Blood Urea Nitrogen 10 mg/dL (7-20) 8 mg/dL (7-20) Creatinine 0.5 mg/dL (0.6-1.0) 0.6 mg/dL (0.6-1.0) Estimated GFR (Cockcroft-Gault) 124.2 100.6 BUN/Creatinine Ratio 20 (6-20) Glucose Level 86 mg/dL (70-99) 75 mg/dL (70-99) Calcium Level 7.6 mg/dL (8.5-10.1) 7.1 mg/dL (8.5-10.1) Total Bilirubin 3.9 mg/dL (0.2-1.0) 3.4 mg/dL (0.2-1.0) Aspartate Amino Transf (AST/SGOT) 99 U/L (15-37) 69 U/L (15-37) Alanine Aminotransferase (ALT/SGPT) 51 U/L (14-59) 41 U/L (14-59) Alkaline Phosphatase 289 U/L (46-116) 207 U/L (46-116) Troponin I Quantitative < 0.017 ng/mL (0.000-0.055) Total Protein 6.5 g/dL (6.4-8.2) 5.2 g/dL (6.4-8.2) Albumin 1.6 g/dL (3.4-5.0) 1.1 g/dL (3.4-5.0) Albumin/Globulin Ratio 0.3 (1.0-1.7) Urine Collection Type Unknown Urine Color Brown Urine Clarity Cloudy Urine pH (<5.0-8.0) Urine Specific [place] 1.025 (1.000-1.030) Urine Protein mg/dL (NEG-TRACE) Urine Glucose (UA) mg/dL (NEG) Urine Ketones (Stick) mg/dL (NEG) Urine Blood (NEG) Urine Nitrite (NEG) Urine Bilirubin (NEG) Urine Urobilinogen Dipstick mg/dL (0.2 mg/dL) Urine Leukocyte Esterase (NEG) Urine RBC 0 /HPF (0-2) Urine WBC 5-10 /HPF (0-4) Urine Squamous Epithelial Cells Many /LPF Urine Bacteria Few /HPF (0-FEW) Urine Mucus Slight /LPF Prothrombin Time 14.6 SEC (11.7-14.0) Prothromb Time International Ratio 1.1 (0.8-1.1) Iron Level 40 ug/dL (50-170) Total Iron Binding Capacity 79 ug/dL (250-450) Iron Saturation 51 % (15-34) Ferritin 2446 ng/mL (8-252) Vitamin B12 Level 1115 pg/mL (247-911) 25-Hydroxy Vitamin D Total 31.3 ng/mL (30-100) Thyroid Stimulating Hormone (TSH) 1.058 uIU/mL (0.358-3.74) Hepatitis A IgM Antibody Nonreactive (Nonreactive) Hepatitis B Surface Antigen Nonreactive (Nonreactive) Hepatitis B Core IgM Antibody Nonreactive (Nonreactive) Hepatitis C IgG Antibody Nonreactive (Nonreactive) Phosphorus Level 2.3 mg/dL (2.6-4.7) Magnesium Level 1.2 mg/dL (1.8-2.4) Direct Bilirubin 2.8 mg/dL (0.0-0.2) Laboratory Tests Test 11/01/20 07:50 White Blood Count 5.9 x10^3/uL (4.0-11.0) Red Blood Count 1.64 x10^6/uL (3.50-5.40) Hemoglobin 7.1 g/dL (12.0-15.5) Hematocrit 20.7 % (36.0-47.0) Mean Corpuscular Volume 126 fL (79-100) Mean Corpuscular Hemoglobin 43 pg (25-35) Mean Corpuscular Hemoglobin Concent 34 g/dL (31-37) Red Cell Distribution Width 15.3 % (11.5-14.5) Platelet Count 93 x10^3/uL (140-400) Neutrophils (%) (Auto) 75 % (31-73) Lymphocytes (%) (Auto) 11 % (24-48) Monocytes (%) (Auto) 12 % (0-9) Eosinophils (%) (Auto) 1 % (0-3) Basophils (%) (Auto) 1 % (0-3) Neutrophils # (Auto) 4.5 x10^3/uL (1.8-7.7) Lymphocytes # (Auto) 0.6 x10^3/uL (1.0-4.8) Monocytes # (Auto) 0.7 x10^3/uL (0.0-1.1) Eosinophils # (Auto) 0.0 x10^3/uL (0.0-0.7) Basophils # (Auto) 0.1 x10^3/uL (0.0-0.2) Sodium Level 137 mmol/L (136-145) Potassium Level 2.7 mmol/L (3.5-5.1) Chloride Level 104 mmol/L (98-107) Carbon Dioxide Level 23 mmol/L (21-32) Anion Gap 10 (6-14) Blood Urea Nitrogen 8 mg/dL (7-20) Creatinine 0.6 mg/dL (0.6-1.0) Estimated GFR (Cockcroft-Gault) 100.6 Glucose Level 75 mg/dL (70-99) Calcium Level 7.1 mg/dL (8.5-10.1) Phosphorus Level 2.3 mg/dL (2.6-4.7) Magnesium Level 1.2 mg/dL (1.8-2.4) Total Bilirubin 3.4 mg/dL (0.2-1.0) Direct Bilirubin 2.8 mg/dL (0.0-0.2) Aspartate Amino Transf (AST/SGOT) 69 U/L (15-37) Alanine Aminotransferase (ALT/SGPT) 41 U/L (14-59) Alkaline Phosphatase 207 U/L (46-116) Total Protein 5.2 g/dL (6.4-8.2) Albumin 1.1 g/dL (3.4-5.0) Assessment/Plan Hypomagnesia and hypokalemia need to be replaced prior to surgery replacement being done today plan for surgery laparoscopic cholecystectomy tomorrow Justicifation of Admission Dx: Justifications for Admission: Justification of Admission Dx: Yes HECTOR COTTO MD Nov 01, 2020 11:34
--- NOTE | 2020-11-01 11:39 | PDOC ---
[employer] PROGRESS NOTE Date of Service DOS: DATE: 11/01/20 TIME: 11:38 Chief Complaint Chief Complaint Generalized weakness Macrocytic anemia Thrombocytopenia Acute electrolyte derangementhyponatremia, hypochloremia suggestive of volume depletion Hyperbilirubinemia Elevated liver enzymes - increased AST/ALT ratio suggestive of chronic EtOH abuse Severe protein malnutrition Acute cholecystitis Severe hypokalemia without any acute EKG changes Plan for laparoscopic cholecystectomy once potassium and electrolytes have been replaced GI consult Surgery consult pending iron panel ,B12 levels, ferritin and direct biliruin SCD only for DVT prophylaxis Protonix for GI prophylaxis DPOA: FULL code dispo: surgery and GI to evaluate History of Present Illness History of Present Illness 64 year old female presents with a chief complaint of weakness. Patient states she has been weak for 1 month progressively becoming worse. She states she has had decreased appetite. States she she has not been interested in eating or drinking. Patient states that she has had difficulty walking due to generalized weakness. States her has to help ambulate her and clean her up. Patient denies any associated headache chest pain shortness of breath fever chills nausea or vomiting. 11/01/2020 No major events overnight. Patient has no appetite. Hemoglobin trended downwards to 7.0. Severe low levels of potassium was 2.7 and magnesium 1.2. Will replace before surgery. Patient's chart, labs, images were reviewed and discussed with RN Vitals/I&O Vitals/I&O: Vital Signs Date Time Temp Pulse Resp B/P (MAP) Pulse Ox O2 Delivery O2 Flow Rate FiO2 11/01/20 07:00 97.8 94 18 118/58 (78) 95 Room Air 97.8 I & O 10/31/20 10/31/20 11/01/20 15:00 23:00 07:00 Intake Total 320 ml 1150 ml 980 ml Output Total 0 ml Balance 320 ml 1150 ml 980 ml Physical Exam General: Alert, Oriented X3, Cooperative, mild distress Heart: Regular rate, No murmurs Abdomen: Normal bowel sounds, Soft, Other (Tender to palpation right upper quadrant) Extremities: No edema Skin: No significant lesion Labs Labs: Laboratory Tests Test 11/01/20 07:50 White Blood Count 5.9 x10^3/uL (4.0-11.0) Red Blood Count 1.64 x10^6/uL (3.50-5.40) Hemoglobin 7.1 g/dL (12.0-15.5) Hematocrit 20.7 % (36.0-47.0) Mean Corpuscular Volume 126 fL (79-100) Mean Corpuscular Hemoglobin 43 pg (25-35) Mean Corpuscular Hemoglobin Concent 34 g/dL (31-37) Red Cell Distribution Width 15.3 % (11.5-14.5) Platelet Count 93 x10^3/uL (140-400) Neutrophils (%) (Auto) 75 % (31-73) Lymphocytes (%) (Auto) 11 % (24-48) Monocytes (%) (Auto) 12 % (0-9) Eosinophils (%) (Auto) 1 % (0-3) Basophils (%) (Auto) 1 % (0-3) Neutrophils # (Auto) 4.5 x10^3/uL (1.8-7.7) Lymphocytes # (Auto) 0.6 x10^3/uL (1.0-4.8) Monocytes # (Auto) 0.7 x10^3/uL (0.0-1.1) Eosinophils # (Auto) 0.0 x10^3/uL (0.0-0.7) Basophils # (Auto) 0.1 x10^3/uL (0.0-0.2) Sodium Level 137 mmol/L (136-145) Potassium Level 2.7 mmol/L (3.5-5.1) Chloride Level 104 mmol/L (98-107) Carbon Dioxide Level 23 mmol/L (21-32) Anion Gap 10 (6-14) Blood Urea Nitrogen 8 mg/dL (7-20) Creatinine 0.6 mg/dL (0.6-1.0) Estimated GFR (Cockcroft-Gault) 100.6 Glucose Level 75 mg/dL (70-99) Calcium Level 7.1 mg/dL (8.5-10.1) Phosphorus Level 2.3 mg/dL (2.6-4.7) Magnesium Level 1.2 mg/dL (1.8-2.4) Total Bilirubin 3.4 mg/dL (0.2-1.0) Direct Bilirubin 2.8 mg/dL (0.0-0.2) Aspartate Amino Transf (AST/SGOT) 69 U/L (15-37) Alanine Aminotransferase (ALT/SGPT) 41 U/L (14-59) Alkaline Phosphatase 207 U/L (46-116) Total Protein 5.2 g/dL (6.4-8.2) Albumin 1.1 g/dL (3.4-5.0) Comment Review of Relevant I have reviewed the following items nick (where applicable) has been applied. Medications: Current Medications Medications (Trade) Dose Ordered Sig/Gal Route PRN Reason Start Time Stop Time Status Last Admin Dose Admin Cyanocobalamin (Vitamin B-12 Inj) 1,000 mcg 1X ONCE IM 10/31/20 12:15 10/31/20 12:16 DC 10/31/20 13:19 Thiamine Mononitrate (Vitamin B-1) 300 mg DAILY PO 10/31/20 13:00 10/31/20 13:19 Folic Acid (Folic Acid) 1 mg DAILY PO 10/31/20 13:00 10/31/20 13:19 Pantoprazole Sodium (Protonix) 40 mg DAILYAC PO 10/31/20 16:30 10/31/20 17:29 Piperacillin Sod/ Tazobactam Sod 3.375 gm/Sodium Chloride 50 ml @ 100 mls/hr Q6HRS IV 10/31/20 13:00 11/01/20 06:03 Magnesium Sulfate 50 ml @ 25 mls/hr 1X ONCE IV 11/01/20 10:00 11/01/20 11:59 11/01/20 10:57 Justifications for Admission Other Justification SAL HERNANDEZ MD Nov 01, 2020 11:39
[2020-11-01] MEDS ORDERED: SODIUM PHOSPHATE 20 MMOL in IV NORMAL SALINE 250ML 250 ML IV ONE (11:45)
[2020-11-01] MEDS ORDERED: POTASSIUM BICARB 20 MEQ EFFERVESCENT TABLET. PO ONE (12:00)
[2020-11-01] MEDS: POTASSIUM CHLORIDE 20MEQ 100 ML IV SCH ×3 (12:39→17:19)
[2020-11-01 15:00] VITALS: BP 132/65
[2020-11-01] MEDS ORDERED: POTASSIUM BICARB 20 MEQ EFFERVESCENT TABLET. PO SCH (17:00)
[2020-11-01] MEDS: POTASSIUM BICARB 20 MEQ EFFERVESCENT TABLET. PO SCH ×2 (17:20→21:16)
[2020-11-01 17:37] LABS: MAGNESIUM 1.8 mg/dL (1.8-2.4); POTASSIUM 4.3 mmol/L (3.5-5.1)
[2020-11-01 19:00] VITALS: BP 112/63
[2020-11-01 23:00] VITALS: BP 117/61
[2020-11-02] VITALS (11 sets, daily range): BP systolic 71–126; BP diastolic 29–69
[2020-11-02] MEDS: IV NORMAL SALINE 1000ML BAG 1,000 ML IV SCH ×3 (00:15→20:15)
[2020-11-02] MEDS: PIPERACILLIN/TAZOBACTAM 3.375 GM in IV NORMAL SALINE 50ML 50 ML IV SCH ×4 (05:50→17:50)
[2020-11-02] MEDS ORDERED: HYDROmorphone 2 MG/ML VIAL IVP PRN (06:00)
[2020-11-02] MEDS ORDERED: IV RINGERS,LACTATED 1000ML 1,000 ML IV SCH (06:00)
[2020-11-02] MEDS ORDERED: fentaNYL PF VIAL 100 MCG/2 ML VIAL IVP PRN ×2 (06:00)
[2020-11-02] MEDS ORDERED: PROCHLORPERAZINE 10 MG/2 ML VIAL. IVP PRN (06:00)
[2020-11-02] MEDS ORDERED: MORPHINE SULFATE 2 MG/ML INJ. IVP PRN (06:00)
[2020-11-02] MEDS ORDERED: BUPIVACAINE-EPI 0.25%-1:200000 MPF 30 ML VIAL. ONE (07:25)
[2020-11-02] MEDS ORDERED: SURGICEL HEMOSTAT 4X8 EACH. ONE (07:25)
[2020-11-02] MEDS ORDERED: IOHEXOL 300 MG/ML 50 ML VIAL. ONE (07:25)
[2020-11-02] MEDS: PANTOPRAZOLE 40 MG TABLET.DR. PO SCH (07:30)
[2020-11-02 07:46] LABS: BASO % 1 % (0-3); EOS % 1 % (0-3); HEMOGLOBIN 7.4 g/dL (12.0-15.5); LYMPH # 0.9 x10^3/uL (1.0-4.8); LYMPH % 23 % (24-48); MEAN CORPUSCULAR HEMOGLOBIN 44 pg (25-35); MEAN CORPUSCULAR HGB CONC 34 g/dL (31-37); MEAN CORPUSCULAR VOLUME 130 fL (79-100); MONO # 0.3 x10^3/uL (0.0-1.1); MONO % 7 % (0-9); NEUT # 2.8 x10^3/uL (1.8-7.7); NEUT % 69 % (31-73); PLATELET COUNT 120 x10^3/uL (140-400); RED BLOOD COUNT 1.69 x10^6/uL (3.50-5.40); RED CELL DISTRIBUTION WIDTH 15.8 % (11.5-14.5); WHITE BLOOD COUNT 4.1 x10^3/uL (4.0-11.0)
[2020-11-02 07:53] LABS: ALBUMIN 1.2 g/dL (3.4-5.0); ALBUMIN/GLOBULIN RATIO 0.2 (1.0-1.7); CALCIUM 7.5 mg/dL (8.5-10.1); CREATININE 0.7 mg/dL (0.6-1.0); GFR 84.2; MAGNESIUM 1.6 mg/dL (1.8-2.4); PHOSPHORUS 2.2 mg/dL (2.6-4.7); POTASSIUM 4.8 mmol/L (3.5-5.1); TOTAL BILIRUBIN 3.6 mg/dL (0.2-1.0); TOTAL PROTEIN 6.2 g/dL (6.4-8.2)
[2020-11-02] MEDS: ENOXAPARIN 40 MG/0.4 ML SYRINGE. SQ SCH (09:00)
[2020-11-02] MEDS ORDERED: MAGNESIUM SULFATE 2GM 50 ML IV ONE (09:00)
[2020-11-02] MEDS: THIAMINE 100 MG TABLET. PO SCH (09:00)
[2020-11-02] MEDS: FOLIC ACID 1 MG TABLET. PO SCH (09:00)
--- NOTE | 2020-11-02 09:40 | PDOC ---
Date of Service: DATE: 11/02/20 TIME: 09:36 Subjective: Subjective: Now reports RLQ pain for a couple days - constant? or worse when she rolls over... but doesn't hurt now. Ate a anjel cracker yesterday. Might have just stooled. Objective: Objective: Surgery held yesterday due to abnormal labs. Stools charted. Vital Signs: Vital Signs Date Time Temp Pulse Resp B/P (MAP) Pulse Ox O2 Delivery O2 Flow Rate FiO2 11/02/20 07:30 98.2 113 16 118/62 (80) 94 Room Air 98.2 Labs: Laboratory Tests Test 11/01/20 17:15 11/02/20 07:05 Potassium Level 4.3 mmol/L 4.8 mmol/L Magnesium Level 1.8 mg/dL 1.6 mg/dL White Blood Count 4.1 x10^3/uL Red Blood Count 1.69 x10^6/uL Hemoglobin 7.4 g/dL Hematocrit 22.0 % Mean Corpuscular Volume 130 fL Mean Corpuscular Hemoglobin 44 pg Mean Corpuscular Hemoglobin Concent 34 g/dL Red Cell Distribution Width 15.8 % Platelet Count 120 x10^3/uL Neutrophils (%) (Auto) 69 % Lymphocytes (%) (Auto) 23 % Monocytes (%) (Auto) 7 % Eosinophils (%) (Auto) 1 % Basophils (%) (Auto) 1 % Neutrophils # (Auto) 2.8 x10^3/uL Lymphocytes # (Auto) 0.9 x10^3/uL Monocytes # (Auto) 0.3 x10^3/uL Eosinophils # (Auto) 0.0 x10^3/uL Basophils # (Auto) 0.0 x10^3/uL Platelet Estimate Pending Sodium Level 137 mmol/L Chloride Level 105 mmol/L Carbon Dioxide Level 23 mmol/L Anion Gap 9 Blood Urea Nitrogen 6 mg/dL Creatinine 0.7 mg/dL Estimated GFR (Cockcroft-Gault) 84.2 BUN/Creatinine Ratio 9 Glucose Level 70 mg/dL Calcium Level 7.5 mg/dL Phosphorus Level 2.2 mg/dL Total Bilirubin 3.6 mg/dL Aspartate Amino Transf (AST/SGOT) 74 U/L Alanine Aminotransferase (ALT/SGPT) 41 U/L Alkaline Phosphatase 218 U/L Total Protein 6.2 g/dL Albumin 1.2 g/dL Albumin/Globulin Ratio 0.2 PE: GEN: NAD - present LUNGS: CTAB HEART: tachycardic ABD: soft, vague RLQ/right periumbilical discomfort NEURO/PSYCH: A & O 3, though not a good historian A/P: Anorexia, weight loss, RLQ discomfort, depression Macrocytic anemia, thrombocytopenia, abnormal LFTs (stable) - h/o alcohol overuse, fatty liver Distended GB, ?sludge GERD, moderate hiatal hernia - on PPI here Hypokalemia, hypomagnesemia - better -- OR today? Will follow. Justicifation of Admission Dx: Justifications for Admission: Justification of Admission Dx: Yes LEN RECINOS Nov 02, 2020 09:40
[2020-11-02] MEDS ORDERED: MIDAZOLAM HCL/PF 2 MG/2 ML VIAL. ONE (10:01)
[2020-11-02] MEDS ORDERED: fentaNYL PF VIAL 100 MCG/2 ML VIAL ONE (10:01)
[2020-11-02] MEDS ORDERED: LIDOCAINE 2% PF 5 ML VIAL. ONE (10:02)
[2020-11-02] MEDS ORDERED: ROCURONIUM 50 MG/5 ML VIAL. ONE (10:02)
[2020-11-02] MEDS ORDERED: ONDANSETRON PF 4 MG/2 ML VIAL. ONE (10:02)
[2020-11-02] MEDS ORDERED: DEXAMETHASONE SOD PHOS 4 MG/ML VIAL ONE (10:02)
[2020-11-02] MEDS ORDERED: PROPOFOL 10 MG/ML (20ML) VIAL. IV ONE (10:02)
[2020-11-02 11:19] LABS: % ATYL 1 % (0-0); % BANDS 11 % (0-9); % EOS 1 % (0-5); % LYMPHS 28 % (24-48); % METAS 1 % (0-0); % MONOS 4 % (0-10); % SEGS 54 % (35-66); ANISOCYTOSIS PRESENT; PLT ESTIMATE DECREASED (ADEQUATE)
[2020-11-02] MEDS ORDERED: PHENYLEPHRINE in 0.9% NACL PF 1 MG/10 ML SYRINGE. IV ONE (11:51)
--- NOTE | 2020-11-02 12:16 | PDOC4 ---
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 Procedure of laparoscopic cholecystectomy was explained to the patient detail was benefits were also discussed including bleeding infection injury to intra- abdominal contents possible necessitating further or open operations alternatives to this procedure also discussed with the patient who seemed to understand and gave both verbal and written consent to have procedure performed. Patient was taken to the operating room placed in the supine position general anesthesia was initiated once patient was sleeping intubated her abdomen was prepped and draped usual sterile fashion using ChloraPrep. Area just below the umbilicus was injected quarter percent Marcaine with epinephrine incision was made 11 blade scalpel and a varies needle was placed within the abdomen creating pneumoperitoneum once this was complete the millimeter port was placed and a 5 mm camera is placed within the abdomen which was inspected there was some small amount of ascites as well as a cirrhotic appearing liver the gallbladder was quite distended. A 5 mm port was placed in the epigastrium a 5 mm port was placed in the right midabdomen a 5 mm port was placed in the right lateral abdomen. The gallbladder was aspirated of its contents. The dome of the gallbladder was then grasped retracted cephalad the infundibulum the gallbladder is grasped tract laterally exposing the triangle of adherent tissue the triangle were taken down exposing the cystic duct and cystic artery fluorescein dye was visualized which showed good anatomy of the cystic duct and common bile duct with no evidence of obstruction. The cystic duct was doubly clipped and transected and the cystic artery was doubly clipped and transected the gallbladder was taken off the liver with hook electrocautery placed in Endo Catch bag and removed the umbilicus the right upper quadrant is irrigated suctioned dry hemostasis deemed to be appropriate the pneumoperitoneum was reduced all ports were removed the fascial defect at the umbilicus was closed with a [id number] 0 Vicryl suture and the skin was reapproximated all port sites for subcuticular Monocryl Mastisol Steri-Strips and island dressings were applied. Patient was awakened and extubated in the operating room taken to re covery in stable condition all sponge instrument needle counts listed as correct estimated blood loss 10 mL. HECTOR COTTO MD Nov 02, 2020 12:16
[2020-11-02] MEDS ORDERED: GLYCOPYRROLATE 1 MG/5 ML VIAL. ONE (12:18)
[2020-11-02] MEDS ORDERED: NEOSTIGMINE METHYLSULFATE 5 MG/5 ML SYRINGE. ONE (12:18)
[2020-11-02] MEDS ORDERED: IPRATRPIUM/ALBUTEROL 0.5/2.5MG 3 ML NEBU. ONE (13:00)
--- NOTE | 2020-11-02 13:00 | PDOC ---
[facility] PROGRESS NOTE Date of Service DOS: DATE: 11/02/20 TIME: 12:59 Chief Complaint Chief Complaint Generalized weakness Macrocytic anemia Thrombocytopenia Acute electrolyte derangementhyponatremia, hypochloremia suggestive of volume depletion Hyperbilirubinemia Elevated liver enzymes - increased AST/ALT ratio suggestive of chronic EtOH abuse Severe protein malnutrition Acute cholecystitis Severe hypokalemia without any acute EKG changes Plan for laparoscopic cholecystectomy once potassium and electrolytes have been replaced GI consult Surgery consult pending iron panel ,B12 levels, ferritin and direct biliruin SCD only for DVT prophylaxis Protonix for GI prophylaxis DPOA: FULL code dispo: surgery and GI to evaluate History of Present Illness History of Present Illness 64 year old female presents with a chief complaint of weakness. Patient states she has been weak for 1 month progressively becoming worse. She states she has had decreased appetite. States she she has not been interested in eating or drinking. Patient states that she has had difficulty walking due to generalized weakness. States her has to help ambulate her and clean her up. Patient denies any associated headache chest pain shortness of breath fever chills nausea or vomiting. 11/01/2020 No major events overnight. Patient has no appetite. Hemoglobin trended downwards to 7.0. Severe low levels of potassium was 2.7 and magnesium 1.2. Will replace before surgery. Patient's chart, labs, images were reviewed and discussed with RN 11/02/2020 No major events overnight. Patient seen and examined bedside. Complains of only right sided vague pain during movement. Labs are stable at this time. Plan for lap varghese today. Patient's chart, labs, images were reviewed and discussed with RN Vitals/I&O Vitals/I&O: Vital Signs Date Time Temp Pulse Resp B/P (MAP) Pulse Ox O2 Delivery O2 Flow Rate FiO2 11/02/20 10:29 100.2 142 23 115/61 94 Room Air 100.2 I & O 11/01/20 11/01/20 11/02/20 15:00 23:00 07:00 Intake Total 300 ml 0 ml Balance 300 ml 0 ml Physical Exam General: Alert, Oriented X3, Cooperative, mild distress Heart: Regular rate, No murmurs Abdomen: Normal bowel sounds, Soft, Other (Tender to palpation right upper quadrant) Extremities: No edema Skin: No significant lesion Labs Labs: Laboratory Tests Test 11/01/20 17:15 11/02/20 07:05 Potassium Level 4.3 mmol/L (3.5-5.1) 4.8 mmol/L (3.5-5.1) Magnesium Level 1.8 mg/dL (1.8-2.4) 1.6 mg/dL (1.8-2.4) White Blood Count 4.1 x10^3/uL (4.0-11.0) Red Blood Count 1.69 x10^6/uL (3.50-5.40) Hemoglobin 7.4 g/dL (12.0-15.5) Hematocrit 22.0 % (36.0-47.0) Mean Corpuscular Volume 130 fL (79-100) Mean Corpuscular Hemoglobin 44 pg (25-35) Mean Corpuscular Hemoglobin Concent 34 g/dL (31-37) Red Cell Distribution Width 15.8 % (11.5-14.5) Platelet Count 120 x10^3/uL (140-400) Neutrophils (%) (Auto) 69 % (31-73) Lymphocytes (%) (Auto) 23 % (24-48) Monocytes (%) (Auto) 7 % (0-9) Eosinophils (%) (Auto) 1 % (0-3) Basophils (%) (Auto) 1 % (0-3) Neutrophils # (Auto) 2.8 x10^3/uL (1.8-7.7) Lymphocytes # (Auto) 0.9 x10^3/uL (1.0-4.8) Monocytes # (Auto) 0.3 x10^3/uL (0.0-1.1) Eosinophils # (Auto) 0.0 x10^3/uL (0.0-0.7) Basophils # (Auto) 0.0 x10^3/uL (0.0-0.2) Segmented Neutrophils % 54 % (35-66) Band Neutrophils % 11 % (0-9) Lymphocytes % 28 % (24-48) Atypical Lymphocytes % (Manual) 1 % (0-0) Monocytes % 4 % (0-10) Eosinophils % 1 % (0-5) Metamyelocytes % 1 % (0-0) Platelet Estimate Decreased (ADEQUATE) Anisocytosis Present Macrocytosis Marked Sodium Level 137 mmol/L (136-145) Chloride Level 105 mmol/L (98-107) Carbon Dioxide Level 23 mmol/L (21-32) Anion Gap 9 (6-14) Blood Urea Nitrogen 6 mg/dL (7-20) Creatinine 0.7 mg/dL (0.6-1.0) Estimated GFR (Cockcroft-Gault) 84.2 BUN/Creatinine Ratio 9 (6-20) Glucose Level 70 mg/dL (70-99) Calcium Level 7.5 mg/dL (8.5-10.1) Phosphorus Level 2.2 mg/dL (2.6-4.7) Total Bilirubin 3.6 mg/dL (0.2-1.0) Aspartate Amino Transf (AST/SGOT) 74 U/L (15-37) Alanine Aminotransferase (ALT/SGPT) 41 U/L (14-59) Alkaline Phosphatase 218 U/L (46-116) Total Protein 6.2 g/dL (6.4-8.2) Albumin 1.2 g/dL (3.4-5.0) Albumin/Globulin Ratio 0.2 (1.0-1.7) Comment Review of Relevant I have reviewed the following items nick (where applicable) has been applied. Medications: Current Medications Medications (Trade) Dose Ordered Sig/Gal Route PRN Reason Start Time Stop Time Status Last Admin Dose Admin Ringer's Solution 1,000 ml @ 30 mls/hr Q24H IV 11/02/20 06:00 11/02/20 17:59 11/02/20 11:06 Potassium Bicarbonate (Potassium Effervescent Tablet) 40 meq BID@1700,2100 PO 11/01/20 17:00 11/01/20 21:01 DC 11/01/20 21:16 Justifications for Admission Other Justification SAL HERNANDEZ MD Nov 02, 2020 13:00
[2020-11-02] MEDS ORDERED: IPRATRPIUM/ALBUTEROL 0.5/2.5MG 3 ML NEBU. NEB ONE (13:15)
[2020-11-02] MEDS: LACTOBACILLUS RHAMNOSUS GG 1 CAPSULE. PO SCH (21:00)
[2020-11-03] MEDS: PIPERACILLIN/TAZOBACTAM 3.375 GM in IV NORMAL SALINE 50ML 50 ML IV SCH ×4 (00:37→17:41)
[2020-11-03 03:00] VITALS: BP 111/67
[2020-11-03] MEDS: IV NORMAL SALINE 1000ML BAG 1,000 ML IV SCH ×2 (06:12→16:15)
[2020-11-03 07:00] VITALS: BP 119/64
--- NOTE | 2020-11-03 10:56 | PDOC ---
[facility] PROGRESS NOTE Date of Service DOS: DATE: 11/03/20 TIME: 10:49 Chief Complaint Chief Complaint Generalized weakness Macrocytic anemia Thrombocytopenia Acute electrolyte derangementhyponatremia, hypochloremia suggestive of volume depletion Hyperbilirubinemia Elevated liver enzymes - increased AST/ALT ratio suggestive of chronic EtOH abuse Severe protein malnutrition Acute cholecystitis Severe hypokalemia without any acute EKG changes Plan for laparoscopic cholecystectomy once potassium and electrolytes have been replaced GI consult Surgery consult pending iron panel ,B12 levels, ferritin and direct biliruin SCD only for DVT prophylaxis Protonix for GI prophylaxis DPOA: FULL code dispo: surgery and GI to evaluate History of Present Illness History of Present Illness 64 year old female presents with a chief complaint of weakness. Patient states she has been weak for 1 month progressively becoming worse. She states she has had decreased appetite. States she she has not been interested in eating or drinking. Patient states that she has had difficulty walking due to generalized weakness. States her has to help ambulate her and clean her up. Patient denies any associated headache chest pain shortness of breath fever chills nausea or vomiting. 11/01/2020 No major events overnight. Patient has no appetite. Hemoglobin trended downwards to 7.0. Severe low levels of potassium was 2.7 and magnesium 1.2. Will replace before surgery. Patient's chart, labs, images were reviewed and discussed with RN 11/02/2020 No major events overnight. Patient seen and examined bedside. Complains of only right sided vague pain during movement. Labs are stable at this time. Plan for lap varghese today. Patient's chart, labs, images were reviewed and discussed with RN 11/03/20 No acute events overnight. Patient seen and examined bedside. Still on clears and have not gotten out of bed to walk. Pending PT evaluation. Pending postoperative labs. Incisions are clear dry and intact. Patient's chart, labs, images were reviewed and discussed with RN Vitals/I&O Vitals/I&O: Vital Signs Date Time Temp Pulse Resp B/P (MAP) Pulse Ox O2 Delivery O2 Flow Rate FiO2 11/03/20 07:00 97.7 98 20 119/64 (82) 100 Nasal Cannula 4.0 97.7 I & O 11/02/20 11/02/20 11/03/20 15:00 23:00 07:00 Intake Total 3100 ml 50 ml 300 ml Output Total 10 ml Balance 3090 ml 50 ml 300 ml Physical Exam General: Alert, Oriented X3, Cooperative, mild distress Heart: Regular rate, No murmurs Abdomen: Normal bowel sounds, Soft, Other (Tender to palpation right upper quadrant) Extremities: No edema Skin: No significant lesion Comment Review of Relevant I have reviewed the following items nick (where applicable) has been applied. Medications: Current Medications Medications (Trade) Dose Ordered Sig/Gal Route PRN Reason Start Time Stop Time Status Last Admin Dose Admin Lactobacillus Rhamnosus (Culturelle) 1 cap BID PO 11/02/20 21:00 11/02/20 21:00 Justifications for Admission Other Justification SAL HERNANDEZ MD Nov 03, 2020 10:56
[2020-11-03 11:00] VITALS: BP 124/72
[2020-11-03] MEDS: THIAMINE 100 MG TABLET. PO SCH (11:00)
[2020-11-03] MEDS: PANTOPRAZOLE 40 MG TABLET.DR. PO SCH (11:00)
[2020-11-03] MEDS: FOLIC ACID 1 MG TABLET. PO SCH (11:00)
[2020-11-03] MEDS: ENOXAPARIN 40 MG/0.4 ML SYRINGE. SQ SCH (11:01)
[2020-11-03] MEDS: LACTOBACILLUS RHAMNOSUS GG 1 CAPSULE. PO SCH ×2 (11:01→21:07)
[2020-11-03] MEDS: ACETAMINOPHEN 325 MG TABLET. PO PRN ×2 (11:14→18:04)
[2020-11-03 12:22] LABS: BASO % 1 % (0-3); EOS % 0 % (0-3); HEMATOCRIT 21.7 % (36.0-47.0); HEMOGLOBIN 7.2 g/dL (12.0-15.5); LYMPH # 1.3 x10^3/uL (1.0-4.8); LYMPH % 14 % (24-48); MEAN CORPUSCULAR HEMOGLOBIN 43 pg (25-35); MEAN CORPUSCULAR HGB CONC 33 g/dL (31-37); MEAN CORPUSCULAR VOLUME 128 fL (79-100); MONO % 11 % (0-9); NEUT # 7.3 x10^3/uL (1.8-7.7); NEUT % 75 % (31-73); PLATELET COUNT 149 x10^3/uL (140-400); RED BLOOD COUNT 1.69 x10^6/uL (3.50-5.40); RED CELL DISTRIBUTION WIDTH 15.2 % (11.5-14.5); WHITE BLOOD COUNT 9.8 x10^3/uL (4.0-11.0)
[2020-11-03 12:30] LABS: ALBUMIN 1.3 g/dL (3.4-5.0); ALBUMIN/GLOBULIN RATIO 0.3 (1.0-1.7); CALCIUM 7.8 mg/dL (8.5-10.1); CREATININE 0.7 mg/dL (0.6-1.0); GFR 84.2; MAGNESIUM 1.7 mg/dL (1.8-2.4); PHOSPHORUS 2.3 mg/dL (2.6-4.7); TOTAL BILIRUBIN 2.7 mg/dL (0.2-1.0); TOTAL PROTEIN 6.1 g/dL (6.4-8.2)
--- NOTE | 2020-11-03 13:25 | PDOC ---
PROGRESS NOTES Date of Service DATE: 11/03/20 TIME: 13:24 Subjective Subjective feeling "ok" Objective Objective Vital Signs Date Time Temp Pulse Resp B/P (MAP) Pulse Ox O2 Delivery O2 Flow Rate FiO2 11/03/20 11:00 97.8 86 20 124/72 (89) 100 Nasal Cannula 4.0 97.8 Intake and Output 11/03/20 07:00 Intake Total 3450 ml Output Total 10 ml Balance 3440 ml Intake Oral 350 ml IV Total 3100 ml Estimated Blood Loss 10 ml # Voids 2 Physical Exam Abdomen: Soft Assessment Assessment S/P lap varghese Plan Plan of Care Stable from surgery standpoint; discharge when ok with primary service Comment Review of Relevant I have reviewed the following items nick (where applicable) has been applied. Labs Laboratory Tests Test 11/01/20 17:15 11/02/20 07:05 11/03/20 11:40 Potassium Level 4.3 mmol/L (3.5-5.1) 4.8 mmol/L (3.5-5.1) 4.0 mmol/L (3.5-5.1) Magnesium Level 1.8 mg/dL (1.8-2.4) 1.6 mg/dL (1.8-2.4) 1.7 mg/dL (1.8-2.4) White Blood Count 4.1 x10^3/uL (4.0-11.0) 9.8 x10^3/uL (4.0-11.0) Red Blood Count 1.69 x10^6/uL (3.50-5.40) 1.69 x10^6/uL (3.50-5.40) Hemoglobin 7.4 g/dL (12.0-15.5) 7.2 g/dL (12.0-15.5) Hematocrit 22.0 % (36.0-47.0) 21.7 % (36.0-47.0) Mean Corpuscular Volume 130 fL (79-100) 128 fL (79-100) Mean Corpuscular Hemoglobin 44 pg (25-35) 43 pg (25-35) Mean Corpuscular Hemoglobin Concent 34 g/dL (31-37) 33 g/dL (31-37) Red Cell Distribution Width 15.8 % (11.5-14.5) 15.2 % (11.5-14.5) Platelet Count 120 x10^3/uL (140-400) 149 x10^3/uL (140-400) Neutrophils (%) (Auto) 69 % (31-73) 75 % (31-73) Lymphocytes (%) (Auto) 23 % (24-48) 14 % (24-48) Monocytes (%) (Auto) 7 % (0-9) 11 % (0-9) Eosinophils (%) (Auto) 1 % (0-3) 0 % (0-3) Basophils (%) (Auto) 1 % (0-3) 1 % (0-3) Neutrophils # (Auto) 2.8 x10^3/uL (1.8-7.7) 7.3 x10^3/uL (1.8-7.7) Lymphocytes # (Auto) 0.9 x10^3/uL (1.0-4.8) 1.3 x10^3/uL (1.0-4.8) Monocytes # (Auto) 0.3 x10^3/uL (0.0-1.1) 1.0 x10^3/uL (0.0-1.1) Eosinophils # (Auto) 0.0 x10^3/uL (0.0-0.7) 0.0 x10^3/uL (0.0-0.7) Basophils # (Auto) 0.0 x10^3/uL (0.0-0.2) 0.0 x10^3/uL (0.0-0.2) Segmented Neutrophils % 54 % (35-66) Band Neutrophils % 11 % (0-9) Lymphocytes % 28 % (24-48) Atypical Lymphocytes % (Manual) 1 % (0-0) Monocytes % 4 % (0-10) Eosinophils % 1 % (0-5) Metamyelocytes % 1 % (0-0) Platelet Estimate Decreased (ADEQUATE) Anisocytosis Present Macrocytosis Marked Sodium Level 137 mmol/L (136-145) 137 mmol/L (136-145) Chloride Level 105 mmol/L (98-107) 104 mmol/L (98-107) Carbon Dioxide Level 23 mmol/L (21-32) 24 mmol/L (21-32) Anion Gap 9 (6-14) 9 (6-14) Blood Urea Nitrogen 6 mg/dL (7-20) 7 mg/dL (7-20) Creatinine 0.7 mg/dL (0.6-1.0) 0.7 mg/dL (0.6-1.0) Estimated GFR (Cockcroft-Gault) 84.2 84.2 BUN/Creatinine Ratio 9 (6-20) 10 (6-20) Glucose Level 70 mg/dL (70-99) 93 mg/dL (70-99) Calcium Level 7.5 mg/dL (8.5-10.1) 7.8 mg/dL (8.5-10.1) Phosphorus Level 2.2 mg/dL (2.6-4.7) 2.3 mg/dL (2.6-4.7) Total Bilirubin 3.6 mg/dL (0.2-1.0) 2.7 mg/dL (0.2-1.0) Aspartate Amino Transf (AST/SGOT) 74 U/L (15-37) 83 U/L (15-37) Alanine Aminotransferase (ALT/SGPT) 41 U/L (14-59) 48 U/L (14-59) Alkaline Phosphatase 218 U/L (46-116) 200 U/L (46-116) Total Protein 6.2 g/dL (6.4-8.2) 6.1 g/dL (6.4-8.2) Albumin 1.2 g/dL (3.4-5.0) 1.3 g/dL (3.4-5.0) Albumin/Globulin Ratio 0.2 (1.0-1.7) 0.3 (1.0-1.7) Laboratory Tests Test 11/03/20 11:40 White Blood Count 9.8 x10^3/uL (4.0-11.0) Red Blood Count 1.69 x10^6/uL (3.50-5.40) Hemoglobin 7.2 g/dL (12.0-15.5) Hematocrit 21.7 % (36.0-47.0) Mean Corpuscular Volume 128 fL (79-100) Mean Corpuscular Hemoglobin 43 pg (25-35) Mean Corpuscular Hemoglobin Concent 33 g/dL (31-37) Red Cell Distribution Width 15.2 % (11.5-14.5) Platelet Count 149 x10^3/uL (140-400) Neutrophils (%) (Auto) 75 % (31-73) Lymphocytes (%) (Auto) 14 % (24-48) Monocytes (%) (Auto) 11 % (0-9) Eosinophils (%) (Auto) 0 % (0-3) Basophils (%) (Auto) 1 % (0-3) Neutrophils # (Auto) 7.3 x10^3/uL (1.8-7.7) Lymphocytes # (Auto) 1.3 x10^3/uL (1.0-4.8) Monocytes # (Auto) 1.0 x10^3/uL (0.0-1.1) Eosinophils # (Auto) 0.0 x10^3/uL (0.0-0.7) Basophils # (Auto) 0.0 x10^3/uL (0.0-0.2) Sodium Level 137 mmol/L (136-145) Potassium Level 4.0 mmol/L (3.5-5.1) Chloride Level 104 mmol/L (98-107) Carbon Dioxide Level 24 mmol/L (21-32) Anion Gap 9 (6-14) Blood Urea Nitrogen 7 mg/dL (7-20) Creatinine 0.7 mg/dL (0.6-1.0) Estimated GFR (Cockcroft-Gault) 84.2 BUN/Creatinine Ratio 10 (6-20) Glucose Level 93 mg/dL (70-99) Calcium Level 7.8 mg/dL (8.5-10.1) Phosphorus Level 2.3 mg/dL (2.6-4.7) Magnesium Level 1.7 mg/dL (1.8-2.4) Total Bilirubin 2.7 mg/dL (0.2-1.0) Aspartate Amino Transf (AST/SGOT) 83 U/L (15-37) Alanine Aminotransferase (ALT/SGPT) 48 U/L (14-59) Alkaline Phosphatase 200 U/L (46-116) Total Protein 6.1 g/dL (6.4-8.2) Albumin 1.3 g/dL (3.4-5.0) Albumin/Globulin Ratio 0.3 (1.0-1.7) Microbiology 10/30/20 Urine Culture - Final, Complete Medications Current Medications Sodium Chloride 1,000 ml @ 1,000 mls/hr 1X ONCE IV Last administered on 10/30/20at 22:00; Start 10/30/20 at 21:00; Stop 10/30/20 at 21:59; Status DC Sodium Chloride 1,000 ml @ 1,000 mls/hr 1X ONCE IV Last administered on 10/31/20at 01:50; Start 10/30/20 at 23:00; Stop 10/30/20 at 23:59; Status DC Iohexol (Omnipaque 300 Mg/ml) 75 ml 1X ONCE IV Last administered on 10/30/20at 23:14; Start 10/30/20 at 23:00; Stop 10/30/20 at 23:01; Status DC Info (CONTRAST GIVEN -- Rx MONITORING) 1 each PRN DAILY PRN MC SEE COMMENTS; Start 10/30/20 at 23:00; Stop 11/01/20 at 22:59; Status DC Ondansetron HCl (Zofran) 4 mg PRN Q8HRS PRN IV NAUSEA/VOMITING; Start 10/31/20 at 00:00; Stop 10/31/20 at 23:59; Status DC Sennosides (Senna) 17.2 mg PRN BID PRN PO CONSTIPATION; Start 10/31/20 at 08:15 Docusate Sodium (Colace) 100 mg PRN DAILY PRN PO HARD STOOLS; Start 10/31/20 at 08:15 Ondansetron HCl (Zofran) 4 mg PRN Q6HRS PRN IVP NAUSEA/VOMITING; Start 10/31/20 at 08:15 Dextrose (Dextrose 50%-Water Syringe) 12.5 gm PRN Q15MIN PRN IV SEE COMMENTS; Start 10/31/20 at 08:15 Sodium Chloride 1,000 ml @ 100 mls/hr Q10H IV Last administered on 11/03/20at 06:12; Start 10/31/20 at 08:15 Acetaminophen (Tylenol) 650 mg PRN Q4HRS PRN PO TEMP OVER 100.4F OR MILD PAIN Last administered on 11/03/20at 11:14; Start 10/31/20 at 08:15 Enoxaparin Sodium (Lovenox 40mg Syringe) 40 mg Q24H SQ Last administered on 11/03/20at 11:01; Start 10/31/20 at 09:00 Cyanocobalamin (Vitamin B-12 Inj) 1,000 mcg 1X ONCE IM Last administered on 10/31/20at 13:19; Start 10/31/20 at 12:15; Stop 10/31/20 at 12:16; Status DC Thiamine Mononitrate (Vitamin B-1) 300 mg DAILY PO Last administered on 11/03/20at 11:00; Start 10/31/20 at 13:00 Folic Acid (Folic Acid) 1 mg DAILY PO Last administered on 11/03/20at 11:00; Start 10/31/20 at 13:00 Pantoprazole Sodium (Protonix) 40 mg DAILYAC PO Last administered on 11/03/20at 11:00; Start 10/31/20 at 16:30 Calcium Carbonate/ Glycine (Tums) 500 mg PRN AFTMEALHC PRN PO INDIGESTION Last administered on 11/03/20at 10:59; Start 10/31/20 at 12:15 Piperacillin Sod/ Tazobactam Sod 3.375 gm/Sodium Chloride 50 ml @ 100 mls/hr Q6HRS IV Last administered on 11/03/20at 12:59; Start 10/31/20 at 13:00 Potassium Chloride/Water 100 ml @ 100 mls/hr Q1H IV ; Start 11/01/20 at 10:00; Stop 11/01/20 at 19:59; Status Cancel Magnesium Sulfate 50 ml @ 25 mls/hr 1X ONCE IV Last administered on 11/01/20at 10:57; Start 11/01/20 at 10:00; Stop 11/01/20 at 11:59; Status DC Potassium Chloride/Water 100 ml @ 50 mls/hr Q2H IV Last administered on 11/01/20at 17:19; Start 11/01/20 at 11:00; Stop 11/01/20 at 16:59; Status DC Potassium Bicarbonate (Potassium Effervescent Tablet) 40 meq TIDWMEALS ONCE PO Last administered on 11/01/20at 12:00; Start 11/01/20 at 12:00; Stop 11/01/20 at 18:02; Status DC Sodium Phosphate 20 mmol/Sodium Chloride 256.6667 ml @ 64.167 m... 1X ONCE IV Last administered on 11/01/20at 14:46; Start 11/01/20 at 11:45; Stop 11/01/20 at 15:44; Status DC Fentanyl Citrate (Fentanyl 2ml Vial) 25 mcg PRN Q5MIN PRN IVP MILD PAIN 1-3; Start 11/02/20 at 06:00; Stop 11/03/20 at 05:59; Status DC Fentanyl Citrate (Fentanyl 2ml Vial) 50 mcg PRN Q5MIN PRN IVP MODERATE PAIN 4- 6; Start 11/02/20 at 06:00; Stop 11/03/20 at 05:59; Status DC Morphine Sulfate (Morphine Sulfate) 1 mg PRN Q10MIN PRN IVP SEVERE PAIN 7-10; Start 11/02/20 at 06:00; Stop 11/03/20 at 05:59; Status DC Ringer's Solution 1,000 ml @ 30 mls/hr Q24H IV Last administered on 11/02/20at 11:06; Start 11/02/20 at 06:00; Stop 11/02/20 at 17:59; Status DC Hydromorphone HCl (Dilaudid) 0.5 mg PRN Q10MIN PRN IVP SEVERE PAIN 7-10, 2nd CHOICE; Start 11/02/20 at 06:00; Stop 11/03/20 at 05:59; Status DC Prochlorperazine Edisylate (Compazine) 5 mg PACU PRN PRN IVP NAUSEA, MRX1; Start 11/02/20 at 06:00; Stop 11/03/20 at 05:59; Status DC Potassium Bicarbonate (Potassium Effervescent Tablet) 40 meq TIDWMEALS PO ; Start 11/01/20 at 17:00; Stop 11/01/20 at 16:53; Status DC Potassium Bicarbonate (Potassium Effervescent Tablet) 40 meq BID@1700,2100 PO Last administered on 11/01/20at 21:16; Start 11/01/20 at 17:00; Stop 11/01/20 at 21:01; Status DC Iohexol (Omnipaque 300 Mg/ml) 50 ml STK-MED ONCE .ROUTE ; Start 11/02/20 at 07:25; Stop 11/02/20 at 07:26; Status DC Cellulose (Surgicel Hemostat 4x8) 1 each STK-MED ONCE .ROUTE ; Start 11/02/20 at 07:25; Stop 11/02/20 at 07:26; Status DC Bupivacaine HCl/ Epinephrine Bitart (Sensorcaine-Epi 0.25%-1:861295 Mpf) 30 ml STK-MED ONCE .ROUTE Last administered on 11/02/20at 11:51; Start 11/02/20 at 07:25; Stop 11/02/20 at 07:26; Status DC Magnesium Sulfate 50 ml @ 25 mls/hr 1X ONCE IV Last administered on 11/02/20at 15:32; Start 11/02/20 at 09:00; Stop 11/02/20 at 10:59; Status DC Fentanyl Citrate (Fentanyl 2ml Vial) 100 mcg STK-MED ONCE .ROUTE ; Start 11/02/20 at 10:01; Stop 11/02/20 at 10:02; Status DC Midazolam HCl (Versed) 2 mg STK-MED ONCE .ROUTE ; Start 11/02/20 at 10:01; Stop 11/02/20 at 10:02; Status DC Rocuronium [place] (Zemuron) 50 mg STK-MED ONCE .ROUTE ; Start 11/02/20 at 10:02; Stop 11/02/20 at 10:02; Status DC Propofol (Diprivan) 200 mg STK-MED ONCE IV ; Start 11/02/20 at 10:02; Stop 11/02/20 at 10:02; Status DC Lidocaine HCl (Lidocaine Pf 2% Vial) 5 ml STK-MED ONCE .ROUTE ; Start 11/02/20 at 10:02; Stop 11/02/20 at 10:02; Status DC Ondansetron HCl (Zofran) 4 mg STK-MED ONCE .ROUTE ; Start 11/02/20 at 10:02; Stop 11/02/20 at 10:02; Status DC Dexamethasone Sodium Phosphate (Decadron) 4 mg STK-MED ONCE .ROUTE ; Start 11/02/20 at 10:02; Stop 11/02/20 at 10:02; Status DC Phenylephrine HCl (PHENYLEPHRINE in 0.9% NACL PF) 1 mg STK-MED ONCE IV ; Start 11/02/20 at 11:51; Stop 11/02/20 at 11:52; Status DC Neostigmine [place] (Neostigmine Methylsulfate) 5 mg STK-MED ONCE .ROUTE ; Start 11/02/20 at 12:18; Stop 11/02/20 at 12:18; Status DC Glycopyrrolate (Robinul) 1 mg STK-MED ONCE .ROUTE ; Start 11/02/20 at 12:18; Stop 11/02/20 at 12:19; Status DC Albuterol/ Ipratropium (Duoneb) 3 ml STK-MED ONCE .ROUTE ; Start 11/02/20 at 13:00; Stop 11/02/20 at 13:00; Status DC Albuterol/ Ipratropium (Duoneb) 3 ml 1X ONCE NEB ; Start 11/02/20 at 13:15; Stop 11/02/20 at 13:16; Status DC Lactobacillus Rhamnosus (Culturelle) 1 cap BID PO Last administered on 11/03/20at 11:01; Start 11/02/20 at 21:00 Active Scripts Active Reported Escitalopram Oxalate 20 Mg Tablet 1 Tab PO DAILY Vitals/I & O Vital Sign - Last 24 Hours 11/02/20 11/02/20 11/02/20 11/02/20 13:35 13:45 13:55 14:10 Pulse 122 118 117 117 Resp 18 18 18 18 B/P (MAP) 126/56 135/54 135/54 Pulse Ox 95 95 95 95 O2 Delivery NonRebreather Mask Simple Mask Simple Mask Nasal Cannula O2 Flow Rate 15 10 10 4 11/02/20 11/02/20 11/02/20 11/02/20 14:25 14:30 15:05 15:19 Temp 100.2 98.0 100.2 98.0 Pulse 118 58 48 Resp 18 16 B/P (MAP) 128/52 86/47 (60) 92/29 (50) Pulse Ox 95 97 O2 Delivery Nasal Cannula Nasal Cannula Room Air O2 Flow Rate 4 4 11/02/20 11/02/20 11/02/20 11/02/20 15:33 15:48 16:03 16:33 Pulse 63 113 111 113 B/P (MAP) 71/47 (55) 72/45 (54) 79/47 (58) 93/49 (64) 11/02/20 11/02/20 11/02/20 11/02/20 17:03 19:00 20:15 23:00 Temp 98.1 98.1 98.1 98.1 Pulse 116 81 72 Resp 18 18 B/P (MAP) 94/61 (72) 106/49 (68) 100/66 (77) Pulse Ox 98 98 O2 Delivery Nasal Cannula Nasal Cannula Nasal Cannula O2 Flow Rate 4.0 4.0 11/03/20 11/03/20 11/03/20 11/03/20 03:00 07:00 08:09 11:00 Temp 97.4 97.7 97.8 97.4 97.7 97.8 Pulse 99 98 86 Resp 18 20 20 B/P (MAP) 111/67 (82) 119/64 (82) 124/72 (89) Pulse Ox 97 100 100 O2 Delivery Nasal Cannula Nasal Cannula Nasal Cannula Nasal Cannula O2 Flow Rate 4.0 4.0 4.0 4.0 Intake and Output 11/02/20 11/02/20 11/03/20 15:00 23:00 07:00 Intake Total 3100 ml 50 ml 300 ml Output Total 10 ml Balance 3090 ml 50 ml 300 ml Justifications for Admission Other Justification HOPE VUONG MD Nov 03, 2020 13:25
[2020-11-03 15:00] VITALS: BP 116/63
[2020-11-03 19:00] VITALS: BP 106/59
[2020-11-03 23:00] VITALS: BP 108/60
[2020-11-04] VITALS (8 sets, daily range): BP systolic 100–131; BP diastolic 54–66
[2020-11-04] MEDS: PIPERACILLIN/TAZOBACTAM 3.375 GM in IV NORMAL SALINE 50ML 50 ML IV SCH ×4 (00:48→17:39)
[2020-11-04] MEDS: IV NORMAL SALINE 1000ML BAG 1,000 ML IV SCH ×3 (07:18→22:15)
--- NOTE | 2020-11-04 10:40 | PDOC ---
PROGRESS NOTES Date of Service DATE: 11/04/20 TIME: 10:39 Subjective Subjective feels well, denies abdominal pain Objective Objective Vital Signs Date Time Temp Pulse Resp B/P (MAP) Pulse Ox O2 Delivery O2 Flow Rate FiO2 11/04/20 07:47 97.4 95 20 111/57 (75) 98 Room Air 97.4 11/03/20 20:00 4.0 Intake and Output 11/04/20 07:00 Intake Total 500 ml Output Total 0 ml Balance 500 ml Intake Oral 500 ml Output Urine Total 0 ml # Voids 2 # Bowel Movements 1 Physical Exam Abdomen: Soft Assessment Assessment S/P lap varghese Plan Plan of Care No new surgical recs Comment Review of Relevant I have reviewed the following items nick (where applicable) has been applied. Labs Laboratory Tests Test 11/03/20 11:40 White Blood Count 9.8 x10^3/uL (4.0-11.0) Red Blood Count 1.69 x10^6/uL (3.50-5.40) Hemoglobin 7.2 g/dL (12.0-15.5) Hematocrit 21.7 % (36.0-47.0) Mean Corpuscular Volume 128 fL (79-100) Mean Corpuscular Hemoglobin 43 pg (25-35) Mean Corpuscular Hemoglobin Concent 33 g/dL (31-37) Red Cell Distribution Width 15.2 % (11.5-14.5) Platelet Count 149 x10^3/uL (140-400) Neutrophils (%) (Auto) 75 % (31-73) Lymphocytes (%) (Auto) 14 % (24-48) Monocytes (%) (Auto) 11 % (0-9) Eosinophils (%) (Auto) 0 % (0-3) Basophils (%) (Auto) 1 % (0-3) Neutrophils # (Auto) 7.3 x10^3/uL (1.8-7.7) Lymphocytes # (Auto) 1.3 x10^3/uL (1.0-4.8) Monocytes # (Auto) 1.0 x10^3/uL (0.0-1.1) Eosinophils # (Auto) 0.0 x10^3/uL (0.0-0.7) Basophils # (Auto) 0.0 x10^3/uL (0.0-0.2) Sodium Level 137 mmol/L (136-145) Potassium Level 4.0 mmol/L (3.5-5.1) Chloride Level 104 mmol/L (98-107) Carbon Dioxide Level 24 mmol/L (21-32) Anion Gap 9 (6-14) Blood Urea Nitrogen 7 mg/dL (7-20) Creatinine 0.7 mg/dL (0.6-1.0) Estimated GFR (Cockcroft-Gault) 84.2 BUN/Creatinine Ratio 10 (6-20) Glucose Level 93 mg/dL (70-99) Calcium Level 7.8 mg/dL (8.5-10.1) Phosphorus Level 2.3 mg/dL (2.6-4.7) Magnesium Level 1.7 mg/dL (1.8-2.4) Total Bilirubin 2.7 mg/dL (0.2-1.0) Aspartate Amino Transf (AST/SGOT) 83 U/L (15-37) Alanine Aminotransferase (ALT/SGPT) 48 U/L (14-59) Alkaline Phosphatase 200 U/L (46-116) Total Protein 6.1 g/dL (6.4-8.2) Albumin 1.3 g/dL (3.4-5.0) Albumin/Globulin Ratio 0.3 (1.0-1.7) Laboratory Tests Test 11/03/20 11:40 White Blood Count 9.8 x10^3/uL (4.0-11.0) Red Blood Count 1.69 x10^6/uL (3.50-5.40) Hemoglobin 7.2 g/dL (12.0-15.5) Hematocrit 21.7 % (36.0-47.0) Mean Corpuscular Volume 128 fL (79-100) Mean Corpuscular Hemoglobin 43 pg (25-35) Mean Corpuscular Hemoglobin Concent 33 g/dL (31-37) Red Cell Distribution Width 15.2 % (11.5-14.5) Platelet Count 149 x10^3/uL (140-400) Neutrophils (%) (Auto) 75 % (31-73) Lymphocytes (%) (Auto) 14 % (24-48) Monocytes (%) (Auto) 11 % (0-9) Eosinophils (%) (Auto) 0 % (0-3) Basophils (%) (Auto) 1 % (0-3) Neutrophils # (Auto) 7.3 x10^3/uL (1.8-7.7) Lymphocytes # (Auto) 1.3 x10^3/uL (1.0-4.8) Monocytes # (Auto) 1.0 x10^3/uL (0.0-1.1) Eosinophils # (Auto) 0.0 x10^3/uL (0.0-0.7) Basophils # (Auto) 0.0 x10^3/uL (0.0-0.2) Sodium Level 137 mmol/L (136-145) Potassium Level 4.0 mmol/L (3.5-5.1) Chloride Level 104 mmol/L (98-107) Carbon Dioxide Level 24 mmol/L (21-32) Anion Gap 9 (6-14) Blood Urea Nitrogen 7 mg/dL (7-20) Creatinine 0.7 mg/dL (0.6-1.0) Estimated GFR (Cockcroft-Gault) 84.2 BUN/Creatinine Ratio 10 (6-20) Glucose Level 93 mg/dL (70-99) Calcium Level 7.8 mg/dL (8.5-10.1) Phosphorus Level 2.3 mg/dL (2.6-4.7) Magnesium Level 1.7 mg/dL (1.8-2.4) Total Bilirubin 2.7 mg/dL (0.2-1.0) Aspartate Amino Transf (AST/SGOT) 83 U/L (15-37) Alanine Aminotransferase (ALT/SGPT) 48 U/L (14-59) Alkaline Phosphatase 200 U/L (46-116) Total Protein 6.1 g/dL (6.4-8.2) Albumin 1.3 g/dL (3.4-5.0) Albumin/Globulin Ratio 0.3 (1.0-1.7) Microbiology 10/30/20 Urine Culture - Final, Complete Medications Current Medications Sodium Chloride 1,000 ml @ 1,000 mls/hr 1X ONCE IV Last administered on 10/30/20at 22:00; Start 10/30/20 at 21:00; Stop 10/30/20 at 21:59; Status DC Sodium Chloride 1,000 ml @ 1,000 mls/hr 1X ONCE IV Last administered on 10/31/20at 01:50; Start 10/30/20 at 23:00; Stop 10/30/20 at 23:59; Status DC Iohexol (Omnipaque 300 Mg/ml) 75 ml 1X ONCE IV Last administered on 10/30/20at 23:14; Start 10/30/20 at 23:00; Stop 10/30/20 at 23:01; Status DC Info (CONTRAST GIVEN -- Rx MONITORING) 1 each PRN DAILY PRN MC SEE COMMENTS; Start 10/30/20 at 23:00; Stop 11/01/20 at 22:59; Status DC Ondansetron HCl (Zofran) 4 mg PRN Q8HRS PRN IV NAUSEA/VOMITING; Start 10/31/20 at 00:00; Stop 10/31/20 at 23:59; Status DC Sennosides (Senna) 17.2 mg PRN BID PRN PO CONSTIPATION; Start 10/31/20 at 08:15 Docusate Sodium (Colace) 100 mg PRN DAILY PRN PO HARD STOOLS; Start 10/31/20 at 08:15 Ondansetron HCl (Zofran) 4 mg PRN Q6HRS PRN IVP NAUSEA/VOMITING; Start 10/31/20 at 08:15 Dextrose (Dextrose 50%-Water Syringe) 12.5 gm PRN Q15MIN PRN IV SEE COMMENTS; Start 10/31/20 at 08:15 Sodium Chloride 1,000 ml @ 100 mls/hr Q10H IV Last administered on 11/04/20at 07:18; Start 10/31/20 at 08:15 Acetaminophen (Tylenol) 650 mg PRN Q4HRS PRN PO TEMP OVER 100.4F OR MILD PAIN Last administered on 11/03/20at 18:04; Start 10/31/20 at 08:15 Enoxaparin Sodium (Lovenox 40mg Syringe) 40 mg Q24H SQ Last administered on 11/03/20at 11:01; Start 10/31/20 at 09:00 Cyanocobalamin (Vitamin B-12 Inj) 1,000 mcg 1X ONCE IM Last administered on 10/31/20at 13:19; Start 10/31/20 at 12:15; Stop 10/31/20 at 12:16; Status DC Thiamine Mononitrate (Vitamin B-1) 300 mg DAILY PO Last administered on 11/03/20at 11:00; Start 10/31/20 at 13:00 Folic Acid (Folic Acid) 1 mg DAILY PO Last administered on 11/03/20at 11:00; Start 10/31/20 at 13:00 Pantoprazole Sodium (Protonix) 40 mg DAILYAC PO Last administered on 11/03/20at 11:00; Start 10/31/20 at 16:30 Calcium Carbonate/ Glycine (Tums) 500 mg PRN AFTMEALHC PRN PO INDIGESTION Last administered on 11/03/20at 10:59; Start 10/31/20 at 12:15 Piperacillin Sod/ Tazobactam Sod 3.375 gm/Sodium Chloride 50 ml @ 100 mls/hr Q6 HRS IV Last administered on 11/04/20at 07:19; Start 10/31/20 at 13:00 Potassium Chloride/Water 100 ml @ 100 mls/hr Q1H IV ; Start 11/01/20 at 10:00; Stop 11/01/20 at 19:59; Status Cancel Magnesium Sulfate 50 ml @ 25 mls/hr 1X ONCE IV Last administered on 11/01/20at 10:57; Start 11/01/20 at 10:00; Stop 11/01/20 at 11:59; Status DC Potassium Chloride/Water 100 ml @ 50 mls/hr Q2H IV Last administered on 11/01/20at 17:19; Start 11/01/20 at 11:00; Stop 11/01/20 at 16:59; Status DC Potassium Bicarbonate (Potassium Effervescent Tablet) 40 meq TIDWMEALS ONCE PO Last administered on 11/01/20at 12:00; Start 11/01/20 at 12:00; Stop 11/01/20 at 18:02; Status DC Sodium Phosphate 20 mmol/Sodium Chloride 256.6667 ml @ 64.167 m... 1X ONCE IV Last administered on 11/01/20at 14:46; Start 11/01/20 at 11:45; Stop 11/01/20 at 15:44; Status DC Fentanyl Citrate (Fentanyl 2ml Vial) 25 mcg PRN Q5MIN PRN IVP MILD PAIN 1-3; Start 11/02/20 at 06:00; Stop 11/03/20 at 05:59; Status DC Fentanyl Citrate (Fentanyl 2ml Vial) 50 mcg PRN Q5MIN PRN IVP MODERATE PAIN 4- 6; Start 11/02/20 at 06:00; Stop 11/03/20 at 05:59; Status DC Morphine Sulfate (Morphine Sulfate) 1 mg PRN Q10MIN PRN IVP SEVERE PAIN 7-10; Start 11/02/20 at 06:00; Stop 11/03/20 at 05:59; Status DC Ringer's Solution 1,000 ml @ 30 mls/hr Q24H IV Last administered on 11/02/20at 11:06; Start 11/02/20 at 06:00; Stop 11/02/20 at 17:59; Status DC Hydromorphone HCl (Dilaudid) 0.5 mg PRN Q10MIN PRN IVP SEVERE PAIN 7-10, 2nd CHOICE; Start 11/02/20 at 06:00; Stop 11/03/20 at 05:59; Status DC Prochlorperazine Edisylate (Compazine) 5 mg PACU PRN PRN IVP NAUSEA, MRX1; Start 11/02/20 at 06:00; Stop 11/03/20 at 05:59; Status DC Potassium Bicarbonate (Potassium Effervescent Tablet) 40 meq TIDWMEALS PO ; Start 11/01/20 at 17:00; Stop 11/01/20 at 16:53; Status DC Potassium Bicarbonate (Potassium Effervescent Tablet) 40 meq BID@1700,2100 PO Last administered on 11/01/20at 21:16; Start 11/01/20 at 17:00; Stop 11/01/20 at 21:01; Status DC Iohexol (Omnipaque 300 Mg/ml) 50 ml STK-MED ONCE .ROUTE ; Start 11/02/20 at 07:25; Stop 11/02/20 at 07:26; Status DC Cellulose (Surgicel Hemostat 4x8) 1 each STK-MED ONCE .ROUTE ; Start 11/02/20 at 07:25; Stop 11/02/20 at 07:26; Status DC Bupivacaine HCl/ Epinephrine Bitart (Sensorcaine-Epi 0.25%-1:476365 Mpf) 30 ml STK-MED ONCE .ROUTE Last administered on 11/02/20at 11:51; Start 11/02/20 at 07:25; Stop 11/02/20 at 07:26; Status DC Magnesium Sulfate 50 ml @ 25 mls/hr 1X ONCE IV Last administered on 11/02/20at 15:32; Start 11/02/20 at 09:00; Stop 11/02/20 at 10:59; Status DC Fentanyl Citrate (Fentanyl 2ml Vial) 100 mcg STK-MED ONCE .ROUTE ; Start 11/02/20 at 10:01; Stop 11/02/20 at 10:02; Status DC Midazolam HCl (Versed) 2 mg STK-MED ONCE .ROUTE ; Start 11/02/20 at 10:01; Stop 11/02/20 at 10:02; Status DC Rocuronium [place] (Zemuron) 50 mg STK-MED ONCE .ROUTE ; Start 11/02/20 at 10:02; Stop 11/02/20 at 10:02; Status DC Propofol (Diprivan) 200 mg STK-MED ONCE IV ; Start 11/02/20 at 10:02; Stop 11/02/20 at 10:02; Status DC Lidocaine HCl (Lidocaine Pf 2% Vial) 5 ml STK-MED ONCE .ROUTE ; Start 11/02/20 at 10:02; Stop 11/02/20 at 10:02; Status DC Ondansetron HCl (Zofran) 4 mg STK-MED ONCE .ROUTE ; Start 11/02/20 at 10:02; Stop 11/02/20 at 10:02; Status DC Dexamethasone Sodium Phosphate (Decadron) 4 mg STK-MED ONCE .ROUTE ; Start 11/02/20 at 10:02; Stop 11/02/20 at 10:02; Status DC Phenylephrine HCl (PHENYLEPHRINE in 0.9% NACL PF) 1 mg STK-MED ONCE IV ; Start 11/02/20 at 11:51; Stop 11/02/20 at 11:52; Status DC Neostigmine [place] (Neostigmine Methylsulfate) 5 mg STK-MED ONCE .ROUTE ; Start 11/02/20 at 12:18; Stop 11/02/20 at 12:18; Status DC Glycopyrrolate (Robinul) 1 mg STK-MED ONCE .ROUTE ; Start 11/02/20 at 12:18; Stop 11/02/20 at 12:19; Status DC Albuterol/ Ipratropium (Duoneb) 3 ml STK-MED ONCE .ROUTE ; Start 11/02/20 at 13:00; Stop 11/02/20 at 13:00; Status DC Albuterol/ Ipratropium (Duoneb) 3 ml 1X ONCE NEB ; Start 11/02/20 at 13:15; Stop 11/02/20 at 13:16; Status DC Lactobacillus Rhamnosus (Culturelle) 1 cap BID PO Last administered on 11/03/20at 21:07; Start 11/02/20 at 21:00 Cyanocobalamin (Vitamin B-12) 1,000 mcg DAILY PO ; Start 11/04/20 at 09:00 Ferrous Sulfate (Feosol) 325 mg QODAY PO ; Start 11/04/20 at 09:00 Iron Sucrose 500 mg/Sodium Chloride 275 ml @ 78.571 mls/ hr 1X ONCE IV ; Start 11/04/20 at 12:00; Stop 11/04/20 at 15:29 Iron Sucrose 500 mg/Sodium Chloride 275 ml @ 78.571 mls/ hr 1X ONCE IV ; Start 11/05/20 at 12:00; Stop 11/05/20 at 15:29 Active Scripts Active Reported Escitalopram Oxalate 20 Mg Tablet 1 Tab PO DAILY Vitals/I & O Vital Sign - Last 24 Hours 11/03/20 11/03/20 11/03/20 11/03/20 11:00 15:00 19:00 20:00 Temp 97.8 98.1 97.4 97.8 98.1 97.4 Pulse 86 88 91 Resp 20 20 18 B/P (MAP) 124/72 (89) 116/63 (80) 106/59 (75) Pulse Ox 100 95 100 O2 Delivery Nasal Cannula Room Air Room Air Nasal Cannula O2 Flow Rate 4.0 4.0 11/03/20 11/04/20 11/04/20 23:00 03:22 07:47 Temp 97.5 97.5 97.4 97.5 97.5 97.4 Pulse 91 85 95 Resp 19 18 20 B/P (MAP) 108/60 (76) 114/66 (82) 111/57 (75) Pulse Ox 98 98 98 O2 Delivery Room Air Room Air Room Air Intake and Output 11/03/20 11/03/20 11/04/20 15:00 23:00 07:00 Intake Total 250 ml 250 ml Output Total 0 ml Balance 250 ml 250 ml 0 ml Justifications for Admission Other Justification HOPE VUONG MD Nov 04, 2020 10:40
[2020-11-04] MEDS: PANTOPRAZOLE 40 MG TABLET.DR. PO SCH (10:47)
[2020-11-04] MEDS: THIAMINE 100 MG TABLET. PO SCH (10:47)
[2020-11-04] MEDS: LACTOBACILLUS RHAMNOSUS GG 1 CAPSULE. PO SCH ×2 (10:47→21:14)
[2020-11-04] MEDS: ENOXAPARIN 40 MG/0.4 ML SYRINGE. SQ SCH (10:48)
[2020-11-04] MEDS: FOLIC ACID 1 MG TABLET. PO SCH (10:48)
[2020-11-04] MEDS: CYANOCOBALAMIN (VITAMIN B-12) 1,000 MCG TABLET. PO SCH (11:07)
[2020-11-04] MEDS: FERROUS SULFATE 325 MG TABLET. PO SCH (11:07)
--- NOTE | 2020-11-04 11:14 | PDOC ---
[facility] PROGRESS NOTE Date of Service DOS: DATE: 11/04/20 TIME: 11:09 Chief Complaint Chief Complaint Generalized weakness Macrocytic anemia, unclear etiology Thrombocytopenia Acute electrolyte derangementhyponatremia, hypochloremia suggestive of volume depletion Hyperbilirubinemia Elevated liver enzymes - increased AST/ALT ratio suggestive of chronic EtOH abuse Severe protein malnutrition Acute cholecystitis s/p lab varghese 11/02/20 Severe hypokalemia without any acute EKG changes Agressive PT Heme consult for anemia B12, thiamine, and iron supplementation IV venofer today GI consult Surgery consult pending iron panel ,B12 levels, ferritin and direct biliruin SCD only for DVT prophylaxis Protonix for GI prophylaxis DPOA: FULL code dispo: ancipate DC tomorrow once ambulating well without asistance, HOME History of Present Illness History of Present Illness 64 year old female presents with a chief complaint of weakness. Patient states she has been weak for 1 month progressively becoming worse. She states she has had decreased appetite. States she she has not been interested in eating or drinking. Patient states that she has had difficulty walking due to generalized weakness. States her has to help ambulate her and clean her up. Patient denies any associated headache chest pain shortness of breath fever chills nausea or vomiting. 11/01/2020 No major events overnight. Patient has no appetite. Hemoglobin trended downwards to 7.0. Severe low levels of potassium was 2.7 and magnesium 1.2. Will replace before surgery. Patient's chart, labs, images were reviewed and discussed with RN 11/02/2020 No major events overnight. Patient seen and examined bedside. Complains of only right sided vague pain during movement. Labs are stable at this time. Plan for lap varghese today. Patient's chart, labs, images were reviewed and discussed with RN 11/03/20 No acute events overnight. Patient seen and examined bedside. Still on clears and have not gotten out of bed to walk. Pending PT evaluation. Pending postope rative labs. Incisions are clear dry and intact. Patient's chart, labs, images were reviewed and discussed with RN 11/04/20 No acute events. Pt seen and examined bedside. Still has not ambulated beyond her room with PT. Eating much better when compared to 2 weeks ago. Patient's chart, labs, images were reviewed and discussed with RN Vitals/I&O Vitals/I&O: Vital Signs Date Time Temp Pulse Resp B/P (MAP) Pulse Ox O2 Delivery O2 Flow Rate FiO2 11/04/20 07:47 97.4 95 20 111/57 (75) 98 Room Air 97.4 11/03/20 20:00 4.0 I & O 11/03/20 11/03/20 11/04/20 15:00 23:00 07:00 Intake Total 250 ml 250 ml Output Total 0 ml Balance 250 ml 250 ml 0 ml Physical Exam General: Alert, Oriented X3, Cooperative, mild distress Heart: Regular rate, No murmurs Abdomen: Soft Extremities: No edema Skin: No significant lesion Labs Labs: Laboratory Tests Test 11/03/20 11:40 White Blood Count 9.8 x10^3/uL (4.0-11.0) Red Blood Count 1.69 x10^6/uL (3.50-5.40) Hemoglobin 7.2 g/dL (12.0-15.5) Hematocrit 21.7 % (36.0-47.0) Mean Corpuscular Volume 128 fL (79-100) Mean Corpuscular Hemoglobin 43 pg (25-35) Mean Corpuscular Hemoglobin Concent 33 g/dL (31-37) Red Cell Distribution Width 15.2 % (11.5-14.5) Platelet Count 149 x10^3/uL (140-400) Neutrophils (%) (Auto) 75 % (31-73) Lymphocytes (%) (Auto) 14 % (24-48) Monocytes (%) (Auto) 11 % (0-9) Eosinophils (%) (Auto) 0 % (0-3) Basophils (%) (Auto) 1 % (0-3) Neutrophils # (Auto) 7.3 x10^3/uL (1.8-7.7) Lymphocytes # (Auto) 1.3 x10^3/uL (1.0-4.8) Monocytes # (Auto) 1.0 x10^3/uL (0.0-1.1) Eosinophils # (Auto) 0.0 x10^3/uL (0.0-0.7) Basophils # (Auto) 0.0 x10^3/uL (0.0-0.2) Sodium Level 137 mmol/L (136-145) Potassium Level 4.0 mmol/L (3.5-5.1) Chloride Level 104 mmol/L (98-107) Carbon Dioxide Level 24 mmol/L (21-32) Anion Gap 9 (6-14) Blood Urea Nitrogen 7 mg/dL (7-20) Creatinine 0.7 mg/dL (0.6-1.0) Estimated GFR (Cockcroft-Gault) 84.2 BUN/Creatinine Ratio 10 (6-20) Glucose Level 93 mg/dL (70-99) Calcium Level 7.8 mg/dL (8.5-10.1) Phosphorus Level 2.3 mg/dL (2.6-4.7) Magnesium Level 1.7 mg/dL (1.8-2.4) Total Bilirubin 2.7 mg/dL (0.2-1.0) Aspartate Amino Transf (AST/SGOT) 83 U/L (15-37) Alanine Aminotransferase (ALT/SGPT) 48 U/L (14-59) Alkaline Phosphatase 200 U/L (46-116) Total Protein 6.1 g/dL (6.4-8.2) Albumin 1.3 g/dL (3.4-5.0) Albumin/Globulin Ratio 0.3 (1.0-1.7) Comment Review of Relevant I have reviewed the following items nick (where applicable) has been applied. Justifications for Admission Other Justification SAL HERNANDEZ MD Nov 04, 2020 11:14
[2020-11-04] MEDS ORDERED: IRON SUCROSE COMPLEX 500 MG in IV NORMAL SALINE 250ML 250 ML IV ONE (12:00)
[2020-11-05] MEDS: PIPERACILLIN/TAZOBACTAM 3.375 GM in IV NORMAL SALINE 50ML 50 ML IV SCH ×4 (01:34→20:22)
[2020-11-05 03:15] VITALS: BP 134/66
[2020-11-05 07:00] VITALS: BP 151/73
[2020-11-05] MEDS: CYANOCOBALAMIN (VITAMIN B-12) 1,000 MCG TABLET. PO SCH (08:36)
[2020-11-05] MEDS: PANTOPRAZOLE 40 MG TABLET.DR. PO SCH (08:36)
[2020-11-05] MEDS: THIAMINE 100 MG TABLET. PO SCH (08:36)
[2020-11-05] MEDS: ENOXAPARIN 40 MG/0.4 ML SYRINGE. SQ SCH (08:36)
[2020-11-05] MEDS: LACTOBACILLUS RHAMNOSUS GG 1 CAPSULE. PO SCH ×2 (08:36→21:24)
[2020-11-05] MEDS: FOLIC ACID 1 MG TABLET. PO SCH (08:36)
[2020-11-05] MEDS: IV NORMAL SALINE 1000ML BAG 1,000 ML IV SCH ×2 (08:42→18:15)
--- NOTE | 2020-11-05 09:44 | PDOC ---
SURGICAL PROGRESS NOTE DATE: 11/05/20 TIME: 09:44 Subjective pain improved tolerating diet Vital Signs Vital Signs Date Time Temp Pulse Resp B/P (MAP) Pulse Ox O2 Delivery O2 Flow Rate FiO2 11/05/20 07:00 98.1 111 18 151/73 (99) 94 Room Air 98.1 11/04/20 20:00 3.0 I&O Intake and Output 11/05/20 07:00 Intake Total 720 ml Output Total 0 ml Balance 720 ml Intake Oral 720 ml Output Urine Total 0 ml # Voids 1 General: Alert, Oriented X3, Cooperative Abdomen: Soft, Other (nd, lap dressings dry) Labs Laboratory Tests Test 11/03/20 11:40 White Blood Count 9.8 x10^3/uL (4.0-11.0) Red Blood Count 1.69 x10^6/uL (3.50-5.40) Hemoglobin 7.2 g/dL (12.0-15.5) Hematocrit 21.7 % (36.0-47.0) Mean Corpuscular Volume 128 fL (79-100) Mean Corpuscular Hemoglobin 43 pg (25-35) Mean Corpuscular Hemoglobin Concent 33 g/dL (31-37) Red Cell Distribution Width 15.2 % (11.5-14.5) Platelet Count 149 x10^3/uL (140-400) Neutrophils (%) (Auto) 75 % (31-73) Lymphocytes (%) (Auto) 14 % (24-48) Monocytes (%) (Auto) 11 % (0-9) Eosinophils (%) (Auto) 0 % (0-3) Basophils (%) (Auto) 1 % (0-3) Neutrophils # (Auto) 7.3 x10^3/uL (1.8-7.7) Lymphocytes # (Auto) 1.3 x10^3/uL (1.0-4.8) Monocytes # (Auto) 1.0 x10^3/uL (0.0-1.1) Eosinophils # (Auto) 0.0 x10^3/uL (0.0-0.7) Basophils # (Auto) 0.0 x10^3/uL (0.0-0.2) Sodium Level 137 mmol/L (136-145) Potassium Level 4.0 mmol/L (3.5-5.1) Chloride Level 104 mmol/L (98-107) Carbon Dioxide Level 24 mmol/L (21-32) Anion Gap 9 (6-14) Blood Urea Nitrogen 7 mg/dL (7-20) Creatinine 0.7 mg/dL (0.6-1.0) Estimated GFR (Cockcroft-Gault) 84.2 BUN/Creatinine Ratio 10 (6-20) Glucose Level 93 mg/dL (70-99) Calcium Level 7.8 mg/dL (8.5-10.1) Phosphorus Level 2.3 mg/dL (2.6-4.7) Magnesium Level 1.7 mg/dL (1.8-2.4) Total Bilirubin 2.7 mg/dL (0.2-1.0) Aspartate Amino Transf (AST/SGOT) 83 U/L (15-37) Alanine Aminotransferase (ALT/SGPT) 48 U/L (14-59) Alkaline Phosphatase 200 U/L (46-116) Total Protein 6.1 g/dL (6.4-8.2) Albumin 1.3 g/dL (3.4-5.0) Albumin/Globulin Ratio 0.3 (1.0-1.7) Problem List s/p varghese can dc when medically ready will sign off Justicifation of Admission Dx: Justifications for Admission: Justification of Admission Dx: Yes JODI KENNEDY [employer] Nov 05, 2020 09:44
--- NOTE | 2020-11-05 10:34 | PDOC ---
Date of Service: DATE: 11/05/20 TIME: 10:28 Subjective: Subjective: Doing better. Ate scrambled eggs and toast for breakfast, didn't want cream of wheat. Has stooled. Didn't get out of bed yesterday. Requires help of . Wants to go home, not to rehab. Objective: Objective: Getting PO iron and also has IV iron ordered (again). Vital Signs: Vital Signs Date Time Temp Pulse Resp B/P (MAP) Pulse Ox O2 Delivery O2 Flow Rate FiO2 11/05/20 07:00 98.1 111 18 151/73 (99) 94 Room Air 98.1 11/04/20 20:00 3.0 Labs: reviewed last labs from 11/03/20 PE: GEN: NAD LUNGS: CTAB HEART: RRR ABD: NABS, S/ND/NT NEURO/PSYCH: A & O 3 A/P: S/p cholecystectomy Anorexia - better Macrocytic anemia (not B12 or iron deficient), abnormal LFTs (better) H/o alcohol overuse, fatty liver GERD, moderate hiatal hernia - on PPI here Depression -- Dc per primary. Would send on PPI for at least month or two. Follow-up for outpt EGD for h/o GERD and screening colonoscopy - our office will call to arrange. Justicifation of Admission Dx: Justifications for Admission: Justification of Admission Dx: Yes LEN RECINOS Nov 05, 2020 10:34
[2020-11-05 11:00] VITALS: BP 149/71
[2020-11-05] MEDS ORDERED: MAGNESIUM SULFATE 4GM 100 ML IV ONE (11:00)
[2020-11-05] MEDS ORDERED: IRON SUCROSE COMPLEX 500 MG in IV NORMAL SALINE 250ML 250 ML IV ONE (12:00)
--- NOTE | 2020-11-05 13:37 | SNU/HH DC ---
DISCHARGE WITH HOME HEALTH DISCHARGE INFORMATION: Discharge Date: Nov 05, 2020 Final Diagnosis: generalized weakness, cholecystitis Condition on Discharge: Stable CODE STATUS: Code Status: Full HOME HEALTH: Face to Face: I certify this patient is under my care and that I, or a nurse practitioner or physician's delivery driver assistant working with me, had a face to face encounter that meets the physician face to face encounter requirements with this patient on []. Medical Complications: Falls Usp For: Assess & Educate Safety, Assess/Skilled Observatio RN For Eval/Treatment: Yes Physical Therapy For: Evalulation/Treatment Occupational Therapy For: Evaluation/Treatment Home Health Aide For: Self-care Pt Meets Homebound Status: Extreme weakness w/ amb., Limited distance walking POST DISCHARGE ORDERS: Activity Instructions for Disc: Activity as tolerated Weight Bearing Status after Di: As tolerated DIET AFTER DISCHARGE: ADA Wound/Incision Care: Keep wound/cast CDI CHECKS AFTER DISCHARGE: Checks after discharge: Check blood press - daily TREATMENT/EQUIPMENT ORDERS: Adaptive Equipment Issued: Walker CERTIFICATION STATEMENT: Certification Statement: Certification Statement: Based on the above finding, I certify that this patient is confined to the home and needs intermittent prison care, physical therapy and/or speech therapy, or continues to need occupational therapy.~ This patient is under my care, and I have initiated the establishment of the plan of care.~ This patient will be followed by myself or a community physician who will periodically review the plan of care. Home Meds Reported Medications Escitalopram Oxalate (ESCITALOPRAM OXALATE) 20 Mg Tablet, 1 TAB PO DAILY for depression, #30 TAB 5 Refills 10/31/20 AMANDA YOUNGBLOOD MD Nov 05, 2020 13:37
[2020-11-05] MEDS ORDERED: FERR325T72 PO (13:39)
[2020-11-05] MEDS ORDERED: PANT40TA77 PO (13:39)
--- NOTE | 2020-11-05 13:47 | PDOC3 ---
Discharge Summary Visit Information Date of Admission: Oct 31, 2020 Date of Discharge: Nov 06, 2020 Admitting Diagnosis: Weakness, cholecystitis Final Diagnosis weakness Brief Hospital Course Allergies Allergies Coded Allergies Type Severity Reaction Last Updated Verified No Known Drug Allergies 10/30/20 No Vital Signs Vital Signs Date Time Temp Pulse Resp B/P (MAP) Pulse Ox O2 Delivery O2 Flow Rate FiO2 11/05/20 07:00 98.1 111 18 151/73 (99) 94 Room Air 98.1 11/04/20 20:00 3.0 Lab Results Laboratory Tests Test 11/05/20 13:20 Red Blood Count 1.61 x10^6/uL (3.50-5.70) Absolute Reticulocyte Count 0.044 x10^6/uL (0.020-0.120) Percent Reticulocyte Count 2.7 % (0.5-2.3) Immature Reticulocyte Fraction 0.57 (0.20-0.60) Laboratory Tests Test 11/05/20 13:20 Red Blood Count 1.61 x10^6/uL (3.50-5.70) Absolute Reticulocyte Count 0.044 x10^6/uL (0.020-0.120) Percent Reticulocyte Count 2.7 % (0.5-2.3) Immature Reticulocyte Fraction 0.57 (0.20-0.60) Brief Hospital Course HPI from admission 64 year old female presents with a chief complaint of weakness. Patient states she has been weak for 1 month progressively becoming worse. She states she has had decreased appetite. States she she has not been interested in eating or drinking. Patient states that she has had difficulty walking due to generalized weakness. States her has to help ambulate her and clean her up. Patient denies any associated headache chest pain shortness of breath fever chills nausea or vomiting Due to low appetite and patient was complaining of right-sided abdominal pain imaging was performed which revealed sludge in the gallbladder. Patient underwent a laparoscopic cholecystectomy after this finding. She tolerated the procedure well without complications. She then was evaluated by physical therapy who recommended acute rehab however patient very resistant to this. Despite discussing with her the benefits multiple times she decided she wanted to go home with home health and this was set up for her and she was discharged on the . Discharge Information Condition at Discharge: Improved Disposition/Orders: D/C to Home w/ HH Scheduled Escitalopram Oxalate (Escitalopram Oxalate) 20 Mg Tablet, 1 TAB PO DAILY for depression, #30 Ref 5 (Reported) Entered as Reported by: CHIKIS HANCOCK on 10/31/20255 Last Action: New Order on 10/31/20255 by CHIKIS HANCOCK Justicifation of Admission Dx: Justifications for Admission: Justification of Admission Dx: Yes AMANDA YOUNGBLOOD MD Nov 05, 2020 13:47
--- NOTE | 2020-11-05 13:51 | PDOC ---
[facility] PROGRESS NOTE Date of Service DOS: DATE: 11/05/20 TIME: 13:50 Chief Complaint Chief Complaint Generalized weakness Macrocytic anemia, unclear etiology Thrombocytopenia Acute electrolyte derangementhyponatremia, hypochloremia suggestive of volume depletion Hyperbilirubinemia Elevated liver enzymes - increased AST/ALT ratio suggestive of chronic EtOH abuse Severe protein malnutrition Acute cholecystitis s/p lab varghese 11/02/20 Severe hypokalemia without any acute EKG changes Agressive PT Heme consult for anemia B12, thiamine, and iron supplementation IV venofer today GI consult Surgery consult pending iron panel ,B12 levels, ferritin and direct biliruin SCD only for DVT prophylaxis Protonix for GI prophylaxis DPOA: FULL code dispo: d/c home History of Present Illness History of Present Illness 64 year old female presents with a chief complaint of weakness. Patient states she has been weak for 1 month progressively becoming worse. She states she has had decreased appetite. States she she has not been interested in eating or drinking. Patient states that she has had difficulty walking due to generalized weakness. States her has to help ambulate her and clean her up. Patient denies any associated headache chest pain shortness of breath fever c hills nausea or vomiting. 11/01/2020 No major events overnight. Patient has no appetite. Hemoglobin trended downwards to 7.0. Severe low levels of potassium was 2.7 and magnesium 1.2. Will replace before surgery. Patient's chart, labs, images were reviewed and discussed with RN 11/02/2020 No major events overnight. Patient seen and examined bedside. Complains of only right sided vague pain during movement. Labs are stable at this time. Plan for lap varghese today. Patient's chart, labs, images were reviewed and discussed with RN 11/03/20 No acute events overnight. Patient seen and examined bedside. Still on clears and have not gotten out of bed to walk. Pending PT evaluation. Pending postoperative labs. Incisions are clear dry and intact. Patient's chart, labs, images were reviewed and discussed with RN 11/04/20 No acute events. Pt seen and examined bedside. Still has not ambulated beyond her room with PT. Eating much better when compared to 2 weeks ago. Patient's chart, labs, images were reviewed and discussed with RN 11/05/2020 Patient seen and examined at bedside Patient remains adamant against going to rehab wants to go home with home health Otherwise medically clear; will give dose of IV iron today Plan of care discussed with bedside nurse Vitals/I&O Vitals/I&O: Vital Signs Date Time Temp Pulse Resp B/P (MAP) Pulse Ox O2 Delivery O2 Flow Rate FiO2 11/05/20 07:00 98.1 111 18 151/73 (99) 94 Room Air 98.1 11/04/20 20:00 3.0 I & O 11/04/20 11/04/20 11/05/20 15:00 23:00 07:00 Intake Total 600 ml 120 ml Output Total 0 ml Balance 600 ml 120 ml 0 ml Physical Exam General: Alert, Oriented X3, Cooperative Heart: Regular rate, No murmurs Abdomen: Soft, Other (nd, lap dressings dry) Extremities: No edema Skin: No significant lesion Labs Labs: Laboratory Tests Test 11/05/20 13:20 Red Blood Count 1.61 x10^6/uL (3.50-5.70) Absolute Reticulocyte Count 0.044 x10^6/uL (0.020-0.120) Percent Reticulocyte Count 2.7 % (0.5-2.3) Immature Reticulocyte Fraction 0.57 (0.20-0.60) Comment Review of Relevant I have reviewed the following items nick (where applicable) has been applied. Medications: Current Medications Medications (Trade) Dose Ordered Sig/Gal Route PRN Reason Start Time Stop Time Status Last Admin Dose Admin Magnesium Sulfate 100 ml @ 25 mls/hr 1X ONCE IV 11/05/20 11:00 11/05/20 14:59 11/05/20 11:03 Justifications for Admission Other Justification AMANDA YOUNGBLOOD MD Nov 05, 2020 13:51
[2020-11-05 15:00] VITALS: BP 138/66
--- NOTE | 2020-11-05 15:09 | PATHOLOGY ---
[facility] Accession Number: [id number] . 01 Material submitted: . gallbladder - GALLBLADDER AND CONTENTS . 01 Clinical history: . CHOLECYSTITIS LAP JERAMIE GENERALIZED WEAKNESS, ELEV . 02 Diagnosis: Gallbladder, laparoscopic cholecystectomy: - Cholesterolosis. - Chronic cholecystitis. ([facility]ber; 11/05/2020) [facility] 11/05/2020 1150 Local . 02 Comment: There are no calculi identified within the gallbladder lumen or specimen container. There is no evidence of malignancy. ([facility]:wilber; 11/05/2020) . 02 Electronically signed: . Anuel Kang MD, Pathologist NPI- [id number] . 01 Gross description: . Fixative: Formalin Labeled: Gallbladder and contents Specimen received: Intact gallbladder Dimensions: 8.0 x 4.5 x 1.5 cm Serosa: [place], slightly edematous Lymph node: Not present Mucosa: Velvety green bile-stained with quintero streaks Average wall thickness: 0.1-0.3 cm Calculi: No calculi present in the specimen or container Abnormalities: No grossly apparent lesions A1- Rougher Helper body, fundus, and the cystic duct margin. ([facility]; 11/03/2020) [facility] 11/03/2020 1235 Local . 02 Pathologist provided ICD-10: K82.4, K81.1 . 02 CPT . 820370 Specimen Comment: A courtesy copy of this report has been sent to [phone], [phone] Specimen Comment: [id number], Specimen Comment: Report sent to ,DR HULL / DR LAND Performed at: [address] [place] [address] [address], [place], [place] [id number] MD Brad Ortega MD Phone: [phone] Performed at: [address] [id number] MD Anuel Kang MD Phone: [phone]
[2020-11-05 19:00] VITALS: BP 125/63
[2020-11-05 23:00] VITALS: BP 135/71
[2020-11-06] MEDS: PIPERACILLIN/TAZOBACTAM 3.375 GM in IV NORMAL SALINE 50ML 50 ML IV SCH ×3 (01:32→12:11)
[2020-11-06 03:00] VITALS: BP 131/92
[2020-11-06] MEDS: PANTOPRAZOLE 40 MG TABLET.DR. PO SCH (06:08)
[2020-11-06] MEDS: IV NORMAL SALINE 1000ML BAG 1,000 ML IV SCH ×2 (06:09→14:15)
[2020-11-06 07:00] VITALS: BP 131/64
--- NOTE | 2020-11-06 08:02 | PDOC2 ---
CONSULT Date of Consult Date of Consult DATE: 11/06/20 TIME: 07:51 Reason for Consult Reason for Consult: Anemia Referring Physician Referring Physician: Dr Pitts Identification/Chief Complaint Chief Complaint Weakness Source Source: Caregiver, Chart review, Patient History of Present Illness Reason for Visit: Sonia Velazquez is a 64 year old female who has been admitted after presenting with weakness. Patient states she has been weak for 1 month progressively becoming worse. She states she has had decreased appetite. States she she has not been interested in eating or drinking. Lab evaluation noted macrocytic anemia, thrombocytopenia. Thrombocytopenia has since resolved. Anemia has been persistent and heme consult has been requested for further evaluation. GI has seen the patient and recommend PPI and OP EGD/colonoscopy. She does have a significant hx of alcohol use, also noted on GI consultation. Past Medical History Cardiovascular: No pertinent hx Pulmonary: No pertinent hx GI: No pertinent hx Heme/Onc: No pertinent hx Hepatobiliary: No pertinent hx Psych: Addictions Infectious disease: No pertinent hx ENT: No pertinent hx Renal/: No pertinent hx Endocrine: No pertinent hx Dermatology: No pertinent hx Past Surgical History Past Surgical History: No pertinent history Family History Family History: No Significant Social History Quit ALCOHOL: heavy Drugs: None Current Medications Current Medications Current Medications Sodium Chloride 1,000 ml @ 1,000 mls/hr 1X ONCE IV Last administered on 10/30/20at 22:00; Start 10/30/20 at 21:00; Stop 10/30/20 at 21:59; Status DC Sodium Chloride 1,000 ml @ 1,000 mls/hr 1X ONCE IV Last administered on 10/31/20at 01:50; Start 10/30/20 at 23:00; Stop 10/30/20 at 23:59; Status DC Iohexol (Omnipaque 300 Mg/ml) 75 ml 1X ONCE IV Last administered on 10/30/20at 23:14; Start 10/30/20 at 23:00; Stop 10/30/20 at 23:01; Status DC Info (CONTRAST GIVEN -- Rx MONITORING) 1 each PRN DAILY PRN MC SEE COMMENTS; Start 10/30/20 at 23:00; Stop 11/01/20 at 22:59; Status DC Ondansetron HCl (Zofran) 4 mg PRN Q8HRS PRN IV NAUSEA/VOMITING; Start 10/31/20 at 00:00; Stop 10/31/20 at 23:59; Status DC Sennosides (Senna) 17.2 mg PRN BID PRN PO CONSTIPATION; Start 10/31/20 at 08:15 Docusate Sodium (Colace) 100 mg PRN DAILY PRN PO HARD STOOLS; Start 10/31/20 at 08:15 Ondansetron HCl (Zofran) 4 mg PRN Q6HRS PRN IVP NAUSEA/VOMITING; Start 10/31/20 at 08:15 Dextrose (Dextrose 50%-Water Syringe) 12.5 gm PRN Q15MIN PRN IV SEE COMMENTS; Start 10/31/20 at 08:15 Sodium Chloride 1,000 ml @ 100 mls/hr Q10H IV Last administered on 11/06/20at 06:09; Start 10/31/20 at 08:15 Acetaminophen (Tylenol) 650 mg PRN Q4HRS PRN PO TEMP OVER 100.4F OR MILD PAIN Last administered on 11/03/20at 18:04; Start 10/31/20 at 08:15 Enoxaparin Sodium (Lovenox 40mg Syringe) 40 mg Q24H SQ Last administered on 11/05/20at 08:36; Start 10/31/20 at 09:00 Cyanocobalamin (Vitamin B-12 Inj) 1,000 mcg 1X ONCE IM Last administered on 10/31/20at 13:19; Start 10/31/20 at 12:15; Stop 10/31/20 at 12:16; Status DC Thiamine Mononitrate (Vitamin B-1) 300 mg DAILY PO Last administered on 11/05/20at 08:36; Start 10/31/20 at 13:00 Folic Acid (Folic Acid) 1 mg DAILY PO Last administered on 11/05/20at 08:36; Start 10/31/20 at 13:00 Pantoprazole Sodium (Protonix) 40 mg DAILYAC PO Last administered on 11/06/20at 06:08; Start 10/31/20 at 16:30 Calcium Carbonate/ Glycine (Tums) 500 mg PRN AFTMEALHC PRN PO INDIGESTION Last administered on 11/03/20at 10:59; Start 10/31/20 at 12:15 Piperacillin Sod/ Tazobactam Sod 3.375 gm/Sodium Chloride 50 ml @ 100 mls/hr Q6HRS IV Last administered on 11/06/20at 06:05; Start 10/31/20 at 13:00 Potassium Chloride/Water 100 ml @ 100 mls/hr Q1H IV ; Start 11/01/20 at 10:00; Stop 11/01/20 at 19:59; Status Cancel Magnesium Sulfate 50 ml @ 25 mls/hr 1X ONCE IV Last administered on 11/01/20at 10:57; Start 11/01/20 at 10:00; Stop 11/01/20 at 11:59; Status DC Potassium Chloride/Water 100 ml @ 50 mls/hr Q2H IV Last administered on 11/01/20at 17:19; Start 11/01/20 at 11:00; Stop 11/01/20 at 16:59; Status DC Potassium Bicarbonate (Potassium Effervescent Tablet) 40 meq TIDWMEALS ONCE PO Last administered on 11/01/20at 12:00; Start 11/01/20 at 12:00; Stop 11/01/20 at 18:02; Status DC Sodium Phosphate 20 mmol/Sodium Chloride 256.6667 ml @ 64.167 m... 1X ONCE IV Last administered on 11/01/20at 14:46; Start 11/01/20 at 11:45; Stop 11/01/20 at 15:44; Status DC Fentanyl Citrate (Fentanyl 2ml Vial) 25 mcg PRN Q5MIN PRN IVP MILD PAIN 1-3; Start 11/02/20 at 06:00; Stop 11/03/20 at 05:59; Status DC Fentanyl Citrate (Fentanyl 2ml Vial) 50 mcg PRN Q5MIN PRN IVP MODERATE PAIN 4- 6; Start 11/02/20 at 06:00; Stop 11/03/20 at 05:59; Status DC Morphine Sulfate (Morphine Sulfate) 1 mg PRN Q10MIN PRN IVP SEVERE PAIN 7-10; Start 11/02/20 at 06:00; Stop 11/03/20 at 05:59; Status DC Ringer's Solution 1,000 ml @ 30 mls/hr Q24H IV Last administered on 11/02/20at 11:06; Start 11/02/20 at 06:00; Stop 11/02/20 at 17:59; Status DC Hydromorphone HCl (Dilaudid) 0.5 mg PRN Q10MIN PRN IVP SEVERE PAIN 7-10, 2nd CHOICE; Start 11/02/20 at 06:00; Stop 11/03/20 at 05:59; Status DC Prochlorperazine Edisylate (Compazine) 5 mg PACU PRN PRN IVP NAUSEA, MRX1; Sta rt 11/02/20 at 06:00; Stop 11/03/20 at 05:59; Status DC Potassium Bicarbonate (Potassium Effervescent Tablet) 40 meq TIDWMEALS PO ; Start 11/01/20 at 17:00; Stop 11/01/20 at 16:53; Status DC Potassium Bicarbonate (Potassium Effervescent Tablet) 40 meq BID@1700,2100 PO Last administered on 11/01/20at 21:16; Start 11/01/20 at 17:00; Stop 11/01/20 at 21:01; Status DC Iohexol (Omnipaque 300 Mg/ml) 50 ml STK-MED ONCE .ROUTE ; Start 11/02/20 at 07:25; Stop 11/02/20 at 07:26; Status DC Cellulose (Surgicel Hemostat 4x8) 1 each STK-MED ONCE .ROUTE ; Start 11/02/20 at 07:25; Stop 11/02/20 at 07:26; Status DC Bupivacaine HCl/ Epinephrine Bitart (Sensorcaine-Epi 0.25%-1:617343 Mpf) 30 ml STK-MED ONCE .ROUTE Last administered on 11/02/20at 11:51; Start 11/02/20 at 07 :25; Stop 11/02/20 at 07:26; Status DC Magnesium Sulfate 50 ml @ 25 mls/hr 1X ONCE IV Last administered on 11/02/20at 15:32; Start 11/02/20 at 09:00; Stop 11/02/20 at 10:59; Status DC Fentanyl Citrate (Fentanyl 2ml Vial) 100 mcg STK-MED ONCE .ROUTE ; Start 11/02/20 at 10:01; Stop 11/02/20 at 10:02; Status DC Midazolam HCl (Versed) 2 mg STK-MED ONCE .ROUTE ; Start 11/02/20 at 10:01; Stop 11/02/20 at 10:02; Status DC Rocuronium [place] (Zemuron) 50 mg STK-MED ONCE .ROUTE ; Start 11/02/20 at 10:02; Stop 11/02/20 at 10:02; Status DC Propofol (Diprivan) 200 mg STK-MED ONCE IV ; Start 11/02/20 at 10:02; Stop 11/02/20 at 10:02; Status DC Lidocaine HCl (Lidocaine Pf 2% Vial) 5 ml STK-MED ONCE .ROUTE ; Start 11/02/20 at 10:02; Stop 11/02/20 at 10:02; Status DC Ondansetron HCl (Zofran) 4 mg STK-MED ONCE .ROUTE ; Start 11/02/20 at 10:02; Stop 11/02/20 at 10:02; Status DC Dexamethasone Sodium Phosphate (Decadron) 4 mg STK-MED ONCE .ROUTE ; Start 11/02/20 at 10:02; Stop 11/02/20 at 10:02; Status DC Phenylephrine HCl (PHENYLEPHRINE in 0.9% NACL PF) 1 mg STK-MED ONCE IV ; Start 11/02/20 at 11:51; Stop 11/02/20 at 11:52; Status DC Neostigmine [place] (Neostigmine Methylsulfate) 5 mg STK-MED ONCE .ROUTE ; Start 11/02/20 at 12:18; Stop 11/02/20 at 12:18; Status DC Glycopyrrolate (Robinul) 1 mg STK-MED ONCE .ROUTE ; Start 11/02/20 at 12:18; Stop 11/02/20 at 12:19; Status DC Albuterol/ Ipratropium (Duoneb) 3 ml STK-MED ONCE .ROUTE ; Start 11/02/20 at 13:00; Stop 11/02/20 at 13:00; Status DC Albuterol/ Ipratropium (Duoneb) 3 ml 1X ONCE NEB ; Start 11/02/20 at 13:15; Stop 11/02/20 at 13:16; Status DC Lactobacillus Rhamnosus (Culturelle) 1 cap BID PO Last administered on 11/05/20at 21:24; Start 11/02/20 at 21:00 Cyanocobalamin (Vitamin B-12) 1,000 mcg DAILY PO Last administered on 11/05/20at 08:36; Start 11/04/20 at 09:00 Ferrous Sulfate (Feosol) 325 mg QODAY PO Last administered on 11/04/20at 11:07; Start 11/04/20 at 09:00 Iron Sucrose 500 mg/Sodium Chloride 275 ml @ 78.571 mls/ hr 1X ONCE IV Last administered on 11/04/20at 13:32; Start 11/04/20 at 12:00; Stop 11/04/20 at 15:29; Status DC Iron Sucrose 500 mg/Sodium Chloride 275 ml @ 78.571 mls/ hr 1X ONCE IV Last administered on 11/05/20at 16:16; Start 11/05/20 at 12:00; Stop 11/05/20 at 15:29; Status DC Magnesium Sulfate 100 ml @ 25 mls/hr 1X ONCE IV Last administered on 11/05/20at 11:03; Start 11/05/20 at 11:00; Stop 11/05/20 at 14:59; Status DC Active Scripts Active Reported Escitalopram Oxalate 20 Mg Tablet 1 Tab PO DAILY Allergies Allergies: Coded Allergies: No Known Drug Allergies (Unverified , 10/30/20) ROS Review of System Negative unless stated otherwise Physical Exam General: Alert, Oriented X3 HEENT: Atraumatic Lungs: Clear to auscultation Heart: Regular rate, Normal S2 Abdomen: No hepatosplenomegaly Extremities: No clubbing Neuro: Normal speech Psych/Mental Status: Mental status NL MUSCULOSKELETAL: No swelling Vitals VITALS Vital Signs Date Time Temp Pulse Resp B/P (MAP) Pulse Ox O2 Delivery O2 Flow Rate FiO2 11/06/20 03:00 97.4 105 20 131/92 (105) 97 Room Air 97.4 Labs Labs Laboratory Tests Test 11/05/20 13:20 Red Blood Count 1.61 x10^6/uL (3.50-5.70) Absolute Reticulocyte Count 0.044 x10^6/uL (0.020-0.120) Percent Reticulocyte Count 2.7 % (0.5-2.3) Immature Reticulocyte Fraction 0.57 (0.20-0.60) Haptoglobin 37 mg/dL (37-355) Uric Acid 1.0 mg/dL (2.6-6.0) Lactate Dehydrogenase 148 U/L (81-234) Vitamin B12 Level > 2000 pg/mL (247-911) Laboratory Tests Test 11/05/20 13:20 Red Blood Count 1.61 x10^6/uL (3.50-5.70) Absolute Reticulocyte Count 0.044 x10^6/uL (0.020-0.120) Percent Reticulocyte Count 2.7 % (0.5-2.3) Immature Reticulocyte Fraction 0.57 (0.20-0.60) Haptoglobin 37 mg/dL (37-355) Uric Acid 1.0 mg/dL (2.6-6.0) Lactate Dehydrogenase 148 U/L (81-234) Vitamin B12 Level > 2000 pg/mL (247-911) Assessment/Plan Assessment/Plan Assessment: Macrocytic anemia likely secondary to alcohol use. 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 Check folate as outpatient (inpatient testing not allowed in [facility]) -Continue to work on alcohol use moderation/cessation -Plan outpatient follow-up with Heme to monitor counts and consider additional work-up -Agree with plans for outpatient GI follow-up for EGD and colonoscopy -Rest per primary team. Please call [phone] with any questions. SAMEERA BOBBY MD Nov 06, 2020 08:02
[2020-11-06] MEDS: ACETAMINOPHEN 325 MG TABLET. PO PRN (10:15)
--- NOTE | 2020-11-06 10:19 | PDOC ---
Date of Service: DATE: 11/06/20 TIME: 10:15 Subjective: Subjective: Now they've decided to go to rehab. says appetite is "terrible." She denies n/v and abd pain and dysphagia. Just not hungry. Objective: Objective: Reviewed hematology note. Vital Signs: Vital Signs Date Time Temp Pulse Resp B/P (MAP) Pulse Ox O2 Delivery O2 Flow Rate FiO2 11/06/20 07:00 97.3 107 16 131/64 (86) 97 Room Air 97.3 Labs: Laboratory Tests Test 11/05/20 13:20 Red Blood Count 1.61 x10^6/uL Absolute Reticulocyte Count 0.044 x10^6/uL Percent Reticulocyte Count 2.7 % Immature Reticulocyte Fraction 0.57 Haptoglobin 37 mg/dL Uric Acid 1.0 mg/dL Erythropoietin Pending Lactate Dehydrogenase 148 U/L Total Protein (PEP) Pending Albumin (PEP) Pending Globulin Pending Albumin/Globulin Ratio Pending Trsvm-3-Ymnrteeob Pending Esgtv-1-Ftlqyzqzd Pending Beta Globulins Pending Gamma Globulins Pending Protein Electrophoresis M-Marquis Pending Protein Electrophoresis Comment Pending Vitamin B12 Level > 2000 pg/mL Immunoglobulin [place]/Lambda Ratio Pending Free [place] Light Chains Pending Free Lambda Light Chains Pending PE: GEN: NAD LUNGS: CTAB HEART: RRR ABD: S/ND/NT NEURO/PSYCH: A & O 3 A/P: Weakness S/p cholecystectomy Anorexia - ongoing Macrocytic anemia (not B12 or iron deficient), abnormal LFTs (better), h/o alcohol overuse, fatty liver GERD, moderate hiatal hernia - started on PPI here -- Awaiting insurance approval for DC to rehab. Encouraged PO and work w/ therapy. Consider addition of Ensure, etc./nutrition opinion. Outpt EGD and colonoscopy. Justicifation of Admission Dx: Justifications for Admission: Justification of Admission Dx: Yes LEN RECINOS Nov 06, 2020 10:19 HOPE REYEZ MD Nov 06, 2020 12:17
[2020-11-06 11:00] VITALS: BP 134/74
[2020-11-06] MEDS: CYANOCOBALAMIN (VITAMIN B-12) 1,000 MCG TABLET. PO SCH (12:11)
[2020-11-06] MEDS: THIAMINE 100 MG TABLET. PO SCH (12:12)
[2020-11-06] MEDS: FOLIC ACID 1 MG TABLET. PO SCH (12:12)
[2020-11-06] MEDS: FERROUS SULFATE 325 MG TABLET. PO SCH (12:12)
[2020-11-06] MEDS: LACTOBACILLUS RHAMNOSUS GG 1 CAPSULE. PO SCH ×2 (12:12→21:18)
[2020-11-06] MEDS: ENOXAPARIN 40 MG/0.4 ML SYRINGE. SQ SCH (12:13)
[2020-11-06 12:15] LABS: ALBUM 1.7 g/dL (2.9-4.4); ALPHA 1 0.2 g/dL (0.0-0.4); ALPHA 2 0.3 g/dL (0.4-1.0); GAMMA 2.9 g/dL (0.4-1.8); PROTEIN TOTAL 6.1 g/dL (6.0-8.5); SPEP AG RATIO 0.4 (0.7-1.7)
--- NOTE | 2020-11-06 13:24 | PDOC ---
[employer] PROGRESS NOTE Date of Service DOS: DATE: 11/06/20 TIME: 13:21 Chief Complaint Chief Complaint Generalized weakness Macrocytic anemia, unclear etiology Thrombocytopenia Acute electrolyte derangementhyponatremia, hypochloremia suggestive of volume depletion Hyperbilirubinemia Elevated liver enzymes - increased AST/ALT ratio suggestive of chronic EtOH abuse Severe protein malnutrition Acute cholecystitis s/p lab varghese 11/02/20 Severe hypokalemia without any acute EKG changes Agressive PT Heme consult for anemia B12, thiamine, and iron supplementation IV venofer today GI consult Surgery consult pending iron panel ,B12 levels, ferritin and direct biliruin SCD only for DVT prophylaxis Protonix for GI prophylaxis DPOA: FULL code dispo: Pending placement versus home health History of Present Illness History of Present Illness 64 year old female presents with a chief complaint of weakness. Patient states she has been weak for 1 month progressively becoming worse. She states she has had decreased appetite. States she she has not been interested in eating or drinking. Patient states that she has had difficulty walking due to generalized weakness. States her has to help ambulate her and clean her up. Patient denies any associated headache chest pain shortness of breath fever chills nausea or vomiting. 11/01/2020 No major events overnight. Patient has no appetite. Hemoglobin trended downwards to 7.0. Severe low levels of potassium was 2.7 and magnesium 1.2. Will replace before surgery. Patient's chart, labs, images were reviewed and discussed with RN 11/02/2020 No major events overnight. Patient seen and examined bedside. Complains of only right sided vague pain during movement. Labs are stable at this time. Plan for lap varghese today. Patient's chart, labs, images were reviewed and discussed with RN 11/03/20 No acute events overnight. Patient seen and examined bedside. Still on clears and have not gotten out of bed to walk. Pending PT evaluation. Pending postoperative labs. Incisions are clear dry and intact. Patient's chart, labs, images were reviewed and discussed with RN 11/04/20 No acute events. Pt seen and examined bedside. Still has not ambulated beyond her room with PT. Eating much better when compared to 2 weeks ago. Patient's c aguilera, labs, images were reviewed and discussed with RN 11/05/2020 Patient seen and examined at bedside Patient remains adamant against going to rehab wants to go home with home health Otherwise medically clear; will give dose of IV iron today Plan of care discussed with bedside nurse 11/06/20 Patient seen and examined at bedside Overnight despite not wanting to go to rehab she decided she was willing to go after her raised concerns about his ability to take care of her at home This was complicated by patient testing Covid positive on placement screening Patient to discuss with her to see if he would feel more comfortable with home health and taking care of her. Just awaiting further plan in that regard Plan of care discussed with bedside nurse. Vitals/I&O Vitals/I&O: Vital Signs Date Time Temp Pulse Resp B/P (MAP) Pulse Ox O2 Delivery O2 Flow Rate FiO2 11/06/20 07:00 97.3 107 16 131/64 (86) 97 Room Air 97.3 I & O 11/05/20 11/05/20 11/06/20 15:00 23:00 07:00 Intake Total 1250 ml 400 ml 400 ml Balance 1250 ml 400 ml 400 ml Physical Exam General: Alert, Oriented X3 Heart: Regular rate, Normal S2 Lungs: Clear Abdomen: Normal bowel sounds, Soft, No hepatosplenomegaly Extremities: No clubbing Skin: No significant lesion Labs Labs: Laboratory Tests Test 11/05/20 22:15 SARS-CoV-2 RNA (AURELIO) Positive (Negative) Comment Review of Relevant I have reviewed the following items nick (where applicable) has been applied. Justifications for Admission Other Justification AMANDA YOUNGBLOOD MD Nov 06, 2020 13:24
[2020-11-06 15:00] VITALS: BP 144/65
[2020-11-06 16:27] LABS: KAPPA FREE 57.5 mg/L (3.3-19.4); KAPPA LAMBDA RATIO 0.21 (0.26-1.65); LAMBDA FREE 270.2 mg/L (5.7-26.3)
[2020-11-06 19:00] VITALS: BP 100/64
[2020-11-06 23:00] VITALS: BP 103/61
[2020-11-07 03:00] VITALS: BP 121/66
[2020-11-07] MEDS: PANTOPRAZOLE 40 MG TABLET.DR. PO SCH (05:22)
[2020-11-07 07:00] VITALS: BP 137/65
[2020-11-07] MEDS: LACTOBACILLUS RHAMNOSUS GG 1 CAPSULE. PO SCH (09:00)
[2020-11-07] MEDS: ENOXAPARIN 40 MG/0.4 ML SYRINGE. SQ SCH (09:00)
[2020-11-07] MEDS: THIAMINE 100 MG TABLET. PO SCH (09:00)
[2020-11-07] MEDS: FOLIC ACID 1 MG TABLET. PO SCH (09:00)
[2020-11-07] MEDS: CYANOCOBALAMIN (VITAMIN B-12) 1,000 MCG TABLET. PO SCH (09:00)
--- NOTE | 2020-11-07 09:45 | SNU/HH DC ---
DISCHARGE WITH HOME HEALTH DISCHARGE INFORMATION: Discharge Date: Nov 05, 2020 Condition on Discharge: Stable CODE STATUS: Code Status: Full HOME HEALTH: Face to Face: I certify this patient is under my care and that I, or a nurse practitioner or kimberly nava's assistant real estate manager working with me, had a face to face encounter that meets the physician face to face encounter requirements with this patient on []. Mcc For: Assess & Educate Safety, Assess/Skilled Observatio RN For Eval/Treatment: Yes Physical Therapy For: Evalulation/Treatment Occupational Therapy For: Evaluation/Treatment Pt Meets Homebound Status: Unsteady balance w/ amb,, Extreme weakness w/ amb., Fatigue w/ amb. POST DISCHARGE ORDERS: Activity Instructions for Disc: Activity as tolerated Weight Bearing Status after Di: As tolerated DIET AFTER DISCHARGE: ADA Wound/Incision Care: Keep wound/cast CDI CHECKS AFTER DISCHARGE: Checks after discharge: Check blood press - daily TREATMENT/EQUIPMENT ORDERS: Adaptive Equipment Issued: Walker CERTIFICATION STATEMENT: Certification Statement: Certification Statement: Based on the above finding, I certify that this patient is confined to the home and needs intermittent long term care, physical therapy and/or speech therapy, or continues to need occupational therapy.~ This patient is under my care, and I have initiated the establishment of the plan of care.~ This patient will be followed by myself or a community physician who will periodically review the plan of care. Home Meds Reported Medications Escitalopram Oxalate (ESCITALOPRAM OXALATE) 20 Mg Tablet, 1 TAB PO DAILY for depression, #30 TAB 5 Refills 10/31/20 AMANDA YOUNGBLOOD MD Nov 07, 2020 09:45
--- NOTE | 2020-11-07 09:51 | PDOC3 ---
Discharge Summary Visit Information Date of Admission: Oct 31, 2020 Date of Discharge: Nov 07, 2020 Admitting Diagnosis: Weakness, cholecystitis Final Diagnosis same as admitting Brief Hospital Course Allergies Allergies Coded Allergies Type Severity Reaction Last Updated Verified No Known Drug Allergies 10/30/20 No Vital Signs Vital Signs Date Time Temp Pulse Resp B/P (MAP) Pulse Ox O2 Delivery O2 Flow Rate FiO2 11/07/20 03:00 97.9 104 18 121/66 (84) 99 Room Air 97.9 Lab Results Laboratory Tests Test 11/05/20 13:20 11/05/20 22:15 Red Blood Count 1.61 x10^6/uL (3.50-5.70) Absolute Reticulocyte Count 0.044 x10^6/uL (0.020-0.120) Percent Reticulocyte Count 2.7 % (0.5-2.3) Immature Reticulocyte Fraction 0.57 (0.20-0.60) Haptoglobin 37 mg/dL (37-355) Uric Acid 1.0 mg/dL (2.6-6.0) Erythropoietin 38.5 mIU/mL (2.6-18.5) Lactate Dehydrogenase 148 U/L (81-234) Total Protein (PEP) 6.1 g/dL (6.0-8.5) Albumin (PEP) 1.7 g/dL (2.9-4.4) Globulin 4.4 g/dL (2.2-3.9) Albumin/Globulin Ratio 0.4 (0.7-1.7) [place]-5-Vixwuizar 0.2 g/dL (0.0-0.4) Cqizg-9-Hqvhwobkz 0.3 g/dL (0.4-1.0) Beta Globulins 1.0 g/dL (0.7-1.3) Gamma Globulins 2.9 g/dL (0.4-1.8) Protein Electrophoresis M-Marquis Not observed g/dL (Not Protein Electrophoresis Comment Comment (.) Vitamin B12 Level > 2000 pg/mL (247-911) Copper Level 87 ug/dL (80-158) Immunoglobulin [place]/Lambda Ratio 0.21 (0.26-1.65) Free [place] Light Chains 57.5 mg/L (3.3-19.4) Free Lambda Light Chains 270.2 mg/L (5.7-26.3) SARS-CoV-2 RNA (AURELIO) Positive (Negative) Brief Hospital Course Chief Complaint Generalized weakness Macrocytic anemia, unclear etiology Thrombocytopenia Acute electrolyte derangementhyponatremia, hypochloremia suggestive of volume depletion Hyperbilirubinemia Elevated liver enzymes - increased AST/ALT ratio suggestive of chronic EtOH abuse Severe protein malnutrition Acute cholecystitis s/p lab varghese 11/02/20 Severe hypokalemia without any acute EKG changes COVID-19 positive Agressive PT Heme consult for anemia B12, thiamine, and iron supplementation GI consult Surgery consult pending iron panel ,B12 levels, ferritin and direct biliruin COVID-19 positive patient is completely asymptomatic SCD only for DVT prophylaxis Protonix for GI prophylaxis DPOA: FULL code dispo: Pending placement versus home health History of Present Illness History of Present Illness 64 year old female presents with a chief complaint of weakness. Patient states she has been weak for 1 month progressively becoming worse. She states she has had decreased appetite. States she she has not been interested in eating or drinking. Patient states that she has had difficulty walking due to generalized weakness. States her has to help ambulate her and clean her up. Patient denies any associated headache chest pain shortness of breath fever chills nausea or vomiting. 11/01/2020 No major events overnight. Patient has no appetite. Hemoglobin trended downwards to 7.0. Severe low levels of potassium was 2.7 and magnesium 1.2. Will replace before surgery. Patient's chart, labs, images were reviewed and discussed with RN 11/02/2020 No major events overnight. Patient seen and examined bedside. Complains of only right sided vague pain during movement. Labs are stable at this time. Plan for lap varghese today. Patient's chart, labs, images were reviewed and discussed with RN 11/03/20 No acute events overnight. Patient seen and examined bedside. Still on clears and have not gotten out of bed to walk. Pending PT evaluation. Pending postoperative labs. Incisions are clear dry and intact. Patient's chart, labs, images were reviewed and discussed with RN 11/04/20 No acute events. Pt seen and examined bedside. Still has not ambulated beyond her room with PT. Eating much better when compared to 2 weeks ago. Patient's chart, labs, images were reviewed and discussed with RN 11/05/2020 Patient seen and examined at bedside Patient remains adamant against going to rehab wants to go home with home health Otherwise medically clear; will give dose of IV iron today Plan of care discussed with bedside nurse 11/06/20 Patient seen and examined at bedside Overnight despite not wanting to go to rehab she decided she was willing to go after her raised concerns about his ability to take care of her at home This was complicated by patient testing Covid positive on placement screening Patient to discuss with her to see if he would feel more comfortable with home health and taking care of her. Just awaiting further plan in that regard Plan of care discussed with bedside nurse. 11/07/20 Patient seen and examined at bedside Remains asymptomatic despite Covid positive No complaints overall eager for discharge Patient and family have decided on home with home health instead of rehab placement given Covid positive status Plan for discharge today Plan of care discussed with bedside nurse Discharge Information Condition at Discharge: Improved Disposition/Orders: D/C to Home w/ HH Scheduled Escitalopram Oxalate (Escitalopram Oxalate) 20 Mg Tablet, 1 TAB PO DAILY for depression, #30 Ref 5 (Reported) Entered as Reported by: CHIKIS HANCOCK on 10/31/20255 Last Action: New Order on 10/31/20255 by CHIKIS HANCOCK Ferrous Sulfate (Feosol) 325 Mg Tablet, 325 MG PO QODAY for carmen for 60 Days, #60 Prescribed by: AMANDA YOUNGBLOOD MD on 11/05/20 1339 Pantoprazole Sodium (Pantoprazole Sodium ) 40 Mg Tablet.dr, 40 MG PO DAILYAC for gerd for 60 Days, #60 Prescribed by: AMANDA YOUNGBLOOD MD on 11/05/20 1339 Justicifation of Admission Dx: Justifications for Admission: Justification of Admission Dx: Yes AMANDA YOUNGBLOOD MD Nov 07, 2020 09:51
[2020-11-07 11:00] VITALS: BP 136/65
--- NOTE | 2020-11-07 11:49 | PDOC ---
Date of Service: DATE: 11/07/20 TIME: 11:46 Objective: Objective: D/w nurse - no GI concerns. New plan is to DC to home today since she is now COVID positive. She did have Moderna COVID vaccines. Vital Signs: Vital Signs Date Time Temp Pulse Resp B/P (MAP) Pulse Ox O2 Delivery O2 Flow Rate FiO2 11/07/20 07:00 97.4 115 16 137/65 (89) 98 Nasal Cannula 5.0 97.4 PE: GEN: in COVID isolation - exam deferred A/P: Weakness, anorexia +COVID S/p cholecystectomy Macrocytic anemia, elevated LFTs, h/o alcohol overuse, fatty liver GERD, moderate hiatal hernia -- DC per primary. Would continue PPI. Follow-up for EGD and colonoscopy - our office will contact. Justicifation of Admission Dx: Justifications for Admission: Justification of Admission Dx: Yes LEN RECINOS Nov 07, 2020 11:49
== END 2020-11-07 15:30 | disposition home health service (06) | DRG 417 ==
LOC: ER 19:37 → 6 SOUTH 23:55 → OBSVTOIN 23:55
PROVIDERS: ADMIT Internal Medicine; ATTEND Internal Medicine
PROC: 0FT44ZZ Resection of Gallbladder, Percutaneous Endoscopic Approach (ICD-10-PCS; principal; 2020-11-02 10:45)
DX: K81.2 Acute cholecystitis with chronic cholecystitis (principal); U07.1 COVID-19; E43 Unspecified severe protein-calorie malnutrition; E87.1 Hypo-osmolality and hyponatremia; J90 Pleural effusion, not elsewhere classified; E87.6 Hypokalemia; R31.9 Hematuria, unspecified; R79.89 Other specified abnormal findings of blood chemistry; R26.2 Difficulty in walking, not elsewhere classified; K82.8 Other specified diseases of gallbladder; K76.0 Fatty (change of) liver, not elsewhere classified; K74.60 Unspecified cirrhosis of liver; K70.9 Alcoholic liver disease, unspecified; K44.9 Diaphragmatic hernia without obstruction or gangrene; K21.9 Gastro-esophageal reflux disease without esophagitis; F32.9 Major depressive disorder, single episode, unspecified; E83.42 Hypomagnesemia; D53.9 Nutritional anemia, unspecified; D69.6 Thrombocytopenia, unspecified; E80.6 Other disorders of bilirubin metabolism; E87.8 Other disorders of electrolyte and fluid balance, not elsewhere classified; Z68.22 Body mass index [BMI] 22.0-22.9, adult; Z79.899 Other long term (current) drug therapy
CPT/HCPCS: 36415; 74177; 76705; 80048; 80053; 80076; 81001; 82306; 82525; 82607; 82668; 82728; 83010; 83520; 83540; 83550; 83615; 83735; 84100; 84132; 84165; 84443; 84484; 84550; 85007; 85025; 85045; 85610; 86705; 86709; 86803; 86850; 86900; 86901; 87086; 87340; 88304; 94640; A4223; A4364; A4657; A4930; A6219; J1100; J1650; J1756; J2250; J2370; J2405; J2543; J2704; J2710; J3010; J3420; J3475; J3480; J3490; J7030; J7050; J7120; Q9967; U0003; U0005; 97530-GP; 97535-GO; 99285-25; G0378